=== PATIENT | female | born 1950 | race Caucasian/White ===

== ENCOUNTER 2018-07-27 20:05 | Inpatient (IN) | payer MEDICARE, OTHER ==
[2018-07-27 21:21] LABS: % BASOPHILS 0.6 % (0.0-2.0); % EOSINOPHILS 0.6 % (0.0-5.0); % LYMPHOCYTES 25.1 % (20.0-50.0); % MONOCYTES 5.6 % (2.0-10.0); % NEUTROPHILS 68.1 % (40.0-80.0); HEMATOCRIT 41.7 % (41.0-60); HEMOGLOBIN 13.8 gm/dL (12-16); LYMPHOCYTE ABSOLUTE 1.6 Th/cmm (1.5-3.0); MEAN CELL VOLUME 95.4 fl (81-100); MEAN CORPUSCULAR HEMOGLOBIN 31.6 pg (27.0-31.0); MEAN CORPUSCULAR HGB CONC 33.2 pg (28.0-36.0); MEAN PLATELET VOLUME 7.5 fl; MONOCYTE ABSOLUTE 0.3 Th/cmm (0.3-1.0); NEUTROPHILE ABSOLUTE 4.3 Th/cmm (1.8-8.0); PLATELET COUNT 291 Th/cmm (150-400); RED BLOOD COUNT 4.37 Mil/cmm (3.80-5.20); RED CELL DISTRIBUTION WIDTH 12.3 % (11.5-20.0); WHITE BLOOD COUNT 6.2 Th/cmm (4.8-10.8)
[2018-07-27 21:34] LABS: ALB/GLOB RATIO 1.4 (1.0-1.8); ALBUMIN 4.1 gm/dL (3.7-5.3); ALKALINE PHOSPHATASE 118 U/L (34-104); ANION GAP 14.8 (7.0-16.0); BILIRUBIN,TOTAL 0.3 mg/dL (0.3-1.0); BUN - UREA NITROGEN 16 mg/dL (7-25); CALCIUM SERUM 9.6 mg/dL (8.6-10.3); CARBON DIOXIDE 27.2 mEq/L (21.0-31.0); CHLORIDE 98 mEq/L (98-107); CREATININE - SERUM 0.6 mg/dL (0.6-1.2); GFR AFRICAN-AMERICAN > 60.0 ml/min (>90); GFR NON AFRICAN-AMERICAN > 60.0 ml/min; GLUCOSE 103 mg/dL (70-105); SGOT 26 U/L (13-39); SGPT/ALT 32 U/L (7-52); SODIUM SERUM 136 mEq/L (136-145)
--- NOTE | 2018-07-27 21:53 | ED Physician Chart ---
ED Chief Complaint/HPI - Patient Information Date Seen:: 07/27/18 Time Seen:: 21:48 Chief Complaint:: diarhea ingesting hand hospitalist physician History of Present Illness:: 68 yr old female from [place] who ingested hand hospitalist physician all day with diarhea agitation hx of schizophrenia generalized weakness Allergies:: Allergies Allergy/AdvReac Type Severity Reaction Status Date / Time No Known Allergies Allergy Verified 07/27/18 20:13 Vitals:: Vital Signs - 8 hr 07/27/18 20:05 Temp 98.1 F HR 75 RR 18 BP 121/71 O2 Sat % 96 ED Review of Systems - Review of Systems General/Constitutional: No fever, No chills, No weight loss, No weakness, No diaphoresis, No edema, No loss of appetite Skin: No skin lesions, No rash, No bruising Head: No headache, No light-headedness Eyes: No loss of vision, No pain, No diplopia ENT: No earache, No nasal drainage, No sore throat, No tinnitus Neck: No neck pain, No swelling, No thyromegaly, No stiffness, No mass noted Cardio Vascular: No chest pain, No palpitations, No PND, No orthopnea, No edema Pulmonary: No SOB, No cough, No sputum, No wheezing GI: No nausea, No vomiting, Diarrhea, No pain, No melena, No hematochezia, No constipation, No hematemesis G/U: No dysuria, No frequency, No hematuria Musculoskeletal: No bone or joint pain, No back pain, No muscle pain Endocrine: No polyuria, No polydipsia Psychiatric: No prior psych history, No depression, No anxiety, No suicidal ideation Hematopoietic: No bruising, No lymphadenopathy Allergic/Immuno: No urticaria, No angioedema Neurological: No syncope, No focal symptoms, No weakness, No paresthesia, No headache, No seizure, No dizziness, No confusion, No vertigo ED Past Medical History - Past Medical History Past Medical History: Other (schizophrenia generalized weakness) Family Medical History - Family Member Mother History Unknown: Yes ED Physical Exam - Physical Examination General/Constitutional: Awake, Well-developed, well-nourished, Alert, No distress, GCS 15, Non-toxic appearing, Ambulatory Head: Atraumatic Eyes: Lids, conjuctiva normal, PERRL, EOMI Skin: Nl inspection, No rash, No skin lesions, No ecchymosis, Well hydrated, No lymphadenopathy ENMT: External ears, nose nl, Nasal exam nl, Lips, teeth, gums nl Neck: Nontender, Full ROM w/o pain, No JVD, No nuchal rigidity, No bruit, No mass, No stridor Respiratory: Nl effort/Exclusion, Clear to Auscultation, No Wheeze/Rhonchi/Rales Cardio Vascular: RRR, No murmur, gallop, rubs, NL S1 S2 GI: No tenderness/rebounding/guarding, No organomegaly, No hernia, Normal BS's, Nondistended, No mass/bruits, No McBurney tenderness : No CVA tenderness Extremities: No edema, Normal digits & nails Neuro/Psych: Alert/oriented Misc: Normal back, No paraspinal tenderness ED Labs/Radiology/EKG Results - Lab Results Results: Laboratory Tests 07/27/18 07/27/18 21:16 21:16 WBC 6.2 RBC 4.37 Hgb 13.8 Hct 41.7 MCV 95.4 MCH 31.6 H MCHC Differential 33.2 RDW 12.3 Plt Count 291 MPV 7.5 Neutrophils % 68.1 Lymphocytes % 25.1 Monocytes % 5.6 Eosinophils % 0.6 Basophils % 0.6 Sodium 136 Potassium 4.0 Chloride 98 Carbon Dioxide 27.2 Anion Gap 14.8 BUN 16 Creatinine 0.6 Est GFR ( Amer) > 60.0 Est GFR (Non-Af Amer) > 60.0 BUN/Creatinine Ratio 26.7 Glucose 103 Calcium 9.6 Total Bilirubin 0.3 AST 26 ALT 32 Alkaline Phosphatase 118 H Total Protein 7.0 Albumin 4.1 Globulin 2.9 Albumin/Globulin Ratio 1.4 ED Assessment - Assessment General Assessment: schizophrenia agitation ingestion hand hospitalist physician falls ED Septic Shock - . Is Septic Shock (SBP<90, OR Lactate>4 mmol\L) present?: No - <6hrs of presentation: Vital Signs: Vital Signs - 8 hr 07/27/18 20:05 Temp 98.1 F HR 75 RR 18 BP 121/71 O2 Sat % 96 ED Reassessment (Disposition) - Reassessment Reassessment Condition:: Improved - Diagnosis Diagnosis:: schizophrenia agitation weakness falls glaucoma ingestion hand hospitalist physician diarhea - Patient Disposition Discharge/Transfer:: Acute Care w/in this hosp Admitted to:: Med/Surg Condition at Disposition:: Stable
[2018-07-27 22:44] VITALS: BP 111/51
[2018-07-27] MEDS ORDERED: Magnesium Hydroxide (MOM) 30 mL UDC PO PRN (22:47)
[2018-07-27] MEDS ORDERED: Maalox 30 mL Cup PO PRN (22:47)
[2018-07-27 23:45] LABS: CHOLESTEROL 213 mg/dL (<200); HDL -HIGH DENSITY LIPOPROTEIN 70 mg/dL (23-92); TRIGLYCERIDES 81 mg/dL (<150)
[2018-07-28] MEDS: Multivitamin Tab PO SCH (08:40)
--- NOTE | 2018-07-28 14:50 | History and Physical ---
History of Present Illness - HPI Chief Complaint: psychosis HPI: This is a 68-year old female who is admitted to the geropsych unit due to 1 day history of diarrhea due to ingesting hand sanitizers. Vital Signs: Last Vital Signs Temp 97.2 F 07/27/18 22:36 Pulse 77 07/27/18 22:36 Resp 20 07/27/18 22:36 BP 111/51 07/27/18 22:43 Pulse Ox 96 07/27/18 22:36 Past Medical History Other History: schizophrenia, generalized weakness Family Medical History - Family Member Mother History Unknown: Yes Father History Unknown: Yes Social History Smoke: No Alcohol: None Drugs: None Lives: Senior Living - Medications Home Medications: Home Medication Medication Instructions Recorded Type Acetaminophen [Tylenol] 650 mg PO Q4H PRN 01/23/16 History Multivitamin [Theragran] 1 tab PO DAILY 01/23/16 History Bimatoprost [Lumigan] 1 drop EACH EYE HS 07/27/18 History Divalproex Sodium [Depakote 250 mg PO BID 07/27/18 History Sprinkle] Dorzolamide HCl/Timolol Maleat 1 drop EACH EYE BID 07/27/18 History [Cosopt Eye Drops] OLANZapine [ZyPREXA] 10 mg PO HS 07/27/18 History - Allergies Allergies/Adverse Reactions: Allergies Allergy/AdvReac Type Severity Reaction Status Date / Time No Known Allergies Allergy Verified 07/27/18 20:13 Review of Systems - Review of Systems Constitutional: Report: No Significant Eyes: Report: No Significant Respiratory: Report: No Significant Cardiovascular: Report: No Significant Neurological: Report: No Significant Physical Exam - Physical Exam HEENT: Report: Ears Nose Throat within normal limits Neck: Report: Within normal limits Cardiovascular Systems: Report: +s1/s2 noted, Regular, Rate and Rhythm Respiratory: Report: Breath Sounds are within normal limits, Clear to Auscultation of lung matos Abdomen: Report: Non-tender to palpation Skin: Report: Color of skin is within normal limits, Warm, Dry Neuro/Psych: Report: Mood affect is within normal limits - Lab Results All Lab Results last 24 hours: Laboratory Results - last 24 hr 07/27/18 07/27/18 07/27/18 21:16 21:16 21:16 WBC 6.2 RBC 4.37 Hgb 13.8 Hct 41.7 MCV 95.4 MCH 31.6 H MCHC Differential 33.2 RDW 12.3 Plt Count 291 MPV 7.5 Neutrophils % 68.1 Lymphocytes % 25.1 Monocytes % 5.6 Eosinophils % 0.6 Basophils % 0.6 Sodium 136 Potassium 4.0 Chloride 98 Carbon Dioxide 27.2 Anion Gap 14.8 BUN 16 Creatinine 0.6 Est GFR ( Amer) > 60.0 Est GFR (Non-Af Amer) > 60.0 BUN/Creatinine Ratio 26.7 Glucose 103 Calcium 9.6 Total Bilirubin 0.3 AST 26 ALT 32 Alkaline Phosphatase 118 H Total Protein 7.0 Albumin 4.1 Globulin 2.9 Albumin/Globulin Ratio 1.4 Triglycerides Cholesterol LDL Cholesterol Direct HDL Cholesterol TSH 1.37 07/27/18 21:16 WBC RBC Hgb Hct MCV MCH MCHC Differential RDW Plt Count MPV Neutrophils % Lymphocytes % Monocytes % Eosinophils % Basophils % Sodium Potassium Chloride Carbon Dioxide Anion Gap BUN Creatinine Est GFR ( Amer) Est GFR (Non-Af Amer) BUN/Creatinine Ratio Glucose Calcium Total Bilirubin AST ALT Alkaline Phosphatase Total Protein Albumin Globulin Albumin/Globulin Ratio Triglycerides 81 Cholesterol 213 H LDL Cholesterol Direct 127 HDL Cholesterol 70 TSH - Assessment Assessment: schizophrenia generalized weakness - Plan Plan: fall precautions safety precautions continue home meds
[2018-07-28] MEDS ORDERED: BIMATOPROST EACH EYE SCH (21:00)
--- NOTE | 2018-07-28 21:43 | Psychiatric Evaluation ---
DATE OF SERVICE: 07/28/2018 IDENTIFYING DATA: The patient is a 68-year-old woman, resident of [facility]. Information obtained by directly interviewing the patient as well as reviewing the admission papers. JUSTIFICATION FOR HOSPITALIZATION: The patient is admitted for acute agitation. CHIEF COMPLAINT: "I don't." HISTORY OF PRESENT ILLNESS: This patient is a 68-year-old woman with a long history of psychiatric problems. The patient is reported to have been getting easily agitated and anxious. The patient has also been extremely upset for being in here and I tried to get some information, but the patient is stating that she does not want to talk and has been getting easily upset. PAST PSYCHIATRIC HISTORY: Significant for the patient is being hospitalized in a psychiatric units in the past and the patient has been treated with mood stabilizers as well as an antipsychotic medication. Prior to the hospital, the patient has been on Zyprexa. She has been getting 10 mg by mouth at bedtime and the patient is also getting the Depakote 250 mg twice a day. Even with the medications, the patient has been having difficult time to cope with the stress. Sleep and appetite prior to the hospitalization are reported to be very poor. The patient has paranoid delusions. Please refer to the above. The patient was hospitalized on multiple occasions. MEDICAL HISTORY AND PHYSICAL EXAMINATION: Requested to be done by Dr. Stanton. SUBSTANCE ABUSE HISTORY: None. PHYSICAL OR SEXUAL ABUSE HISTORY: None. SOCIAL HISTORY: The patient is a resident of the [facility]. MENTAL STATUS EXAMINATION: The patient is a 68-year-old woman looking her stated age, irritable, angry. Speech is noted to be coherent, but is irrelevant and the patient is going on a tangent. The patient has paranoid delusions, but denies any command hallucinations. The patient is denying any visual hallucinations. The patient has short-term as well as long-term memory deficits. The patient's behavior is equally danger to self and others because of her acute agitation. DIAGNOSTIC IMPRESSION: AXIS I: Psychotic disorder, not otherwise specified. [place] I B: Rule out schizoaffective disorder. AXIS II: None. AXIS III: As per Dr. Stanton. IMMEDIATE TREATMENT PLAN: The patient is going to be observed on inpatient unit, provided with supportive psychotherapy. The patient is going to be closely monitored and the patient is going to be adjusted on the medications. ESTIMATED LENGTH OF STAY: 5-7 days. DISCHARGE CRITERIA: When she no longer a threat to self or others and be able to cope up with the stress. JOB# [id number]
[2018-07-29] MEDS ORDERED: Multivitamin Tab PO SCH (09:00)
[2018-07-29] MEDS: Multivitamin Tab PO SCH (09:15)
--- NOTE | 2018-07-29 23:41 | Progress Notes ---
DATE: 07/29/2018 PSYCHIATRIC PROGRESS NOTE SUBJECTIVE: Staff was spoken to. The patient is interviewed. Mood is noted to be irritable. Affect is constricted. Insight and judgment noted to be still impaired. Impulse control is noted to be poor. Coping skills are also noted to be very poor. The patient has been very paranoid. The patient is still responding to internal stimuli. The patient is currently on olanzapine and Depakote and has been able to tolerate the medications. No side effects to the medications are noted. ASSESSMENT: The patient is still impulsive and psychotic. PLAN: To continue the patient with the supportive therapy and followup. JOB# [id number]
[2018-07-30] MEDS: Multivitamin Tab PO SCH (08:40)
--- NOTE | 2018-07-30 11:24 | Progress Notes ---
DATE: 07/30/2018 PSYCHIATRIC PROGRESS NOTE PROGRESS ON THE UNIT: Staff was spoken to. The patient is interviewed. Mood is noted to be irritable. Affect is constricted. The patient is isolative and withdrawn. The patient is currently on olanzapine and Depakote. The patient has been able to tolerate the medications. No side effects to the medications are noted. The patient is being closely monitored at this time. ASSESSMENT: The patient is still psychotic. PLAN: To continue the patient with supportive therapy. I encouraged the patient to verbalize the concerns. The patient is not ready to be discharged to a lower level of care. JOB# [id number]
--- NOTE | 2018-07-30 13:21 | Internal Medicine Prog Note ---
Internal Medicine Subjective - Subjective Patient seen and examined:: with staff, chart reviewed, other (late entry fo - 08 04) Patient is:: awake, verbal, interactive Per staff patient has:: no adverse event, no episodes of fall, poor appetite, tolerating meds Internal Medicine Objective - Results Result Diagrams: 07/27/18 21:16 07/27/18 21:16 Recent Labs: Laboratory Last Values WBC 6.2 Th/cmm (4.8-10.8) 07/27/18 21:16 RBC 4.37 Mil/cmm (3.80-5.20) 07/27/18 21:16 Hgb 13.8 gm/dL (12-16) 07/27/18 21:16 Hct 41.7 % (41.0-60) 07/27/18 21:16 MCV 95.4 fl (81-100) 07/27/18 21:16 MCH 31.6 pg (27.0-31.0) H 07/27/18 21:16 MCHC Differential 33.2 pg (28.0-36.0) 07/27/18 21:16 RDW 12.3 % (11.5-20.0) 07/27/18 21:16 Plt Count 291 Th/cmm (150-400) 07/27/18 21:16 MPV 7.5 fl 07/27/18 21:16 Neutrophils % 68.1 % (40.0-80.0) 07/27/18 21:16 Lymphocytes % 25.1 % (20.0-50.0) 07/27/18 21:16 Monocytes % 5.6 % (2.0-10.0) 07/27/18 21:16 Eosinophils % 0.6 % (0.0-5.0) 07/27/18 21:16 Basophils % 0.6 % (0.0-2.0) 07/27/18 21:16 Sodium 136 mEq/L (136-145) 07/27/18 21:16 Potassium 4.0 mEq/L (3.5-5.1) 07/27/18 21:16 Chloride 98 mEq/L (98-107) 07/27/18 21:16 Carbon Dioxide 27.2 mEq/L (21.0-31.0) 07/27/18 21:16 Anion Gap 14.8 (7.0-16.0) 07/27/18 21:16 BUN 16 mg/dL (7-25) 07/27/18 21:16 Creatinine 0.6 mg/dL (0.6-1.2) 07/27/18 21:16 Est GFR ( Amer) > 60.0 ml/min (>90) 07/27/18 21:16 Est GFR (Non-Af Amer) > 60.0 ml/min 07/27/18 21:16 BUN/Creatinine Ratio 26.7 07/27/18 21:16 Glucose 103 mg/dL (70-105) 07/27/18 21:16 Calcium 9.6 mg/dL (8.6-10.3) 07/27/18 21:16 Total Bilirubin 0.3 mg/dL (0.3-1.0) 07/27/18 21:16 AST 26 U/L (13-39) 07/27/18 21:16 ALT 32 U/L (7-52) 07/27/18 21:16 Alkaline Phosphatase 118 U/L (34-104) H 07/27/18 21:16 Total Protein 7.0 gm/dL (6.0-8.3) 07/27/18 21:16 Albumin 4.1 gm/dL (3.7-5.3) 07/27/18 21:16 Globulin 2.9 gm/dL 07/27/18 21:16 Albumin/Globulin Ratio 1.4 (1.0-1.8) 07/27/18 21:16 Triglycerides 81 mg/dL (<150) 07/27/18 21:16 Cholesterol 213 mg/dL (<200) H 07/27/18 21:16 LDL Cholesterol Direct 127 mg/dL (75-193) 07/27/18 21:16 HDL Cholesterol 70 mg/dL (23-92) 07/27/18 21:16 TSH 1.37 uIU/ml (0.34-5.60) 07/27/18 21:16 - Physical Exam Vitals and I&O: Vital Signs Temp 98 F 07/29/18 20:00 Pulse 85 07/29/18 20:00 Resp 18 07/29/18 20:00 BP 110/59 07/29/18 20:00 Pulse Ox 97 07/29/18 20:00 Intake & Output 07/29/18 07/30/18 07/30/18 18:59 06:59 18:59 Intake Total 800 120 Balance 800 120 Intake: Oral 800 120 Other: # Voids 3 3 # Bowel Movements 0 Active Medications: Current Medications Acetaminophen (Tylenol) 650 mg PO Q4H PRN PRN Reason: Pain or Fever >101 Stop: 09/26/18 12:16 Last Admin: 07/29/18 02:14 Dose: 650 mg Al Hydrox/Mg Hydrox/Simethicone (Maalox) 30 ml PO Q4HR PRN PRN Reason: GI DISTRESS Stop: 09/25/18 22:46 Divalproex Sodium (Depakote Sprinkle) 250 mg PO BID ZARA; Protocol Stop: 09/26/18 08:59 Last Admin: 07/30/18 08:40 Dose: 250 mg Dorzolamide/Timolol (Cosopt Ophth Soln) 1 drop EACH EYE BID ZARA Stop: 09/26/18 08:59 Last Admin: 07/30/18 08:40 Dose: 1 drop Latanoprost (Xalatan 0.005% Ophth Soln) 1 drop EACH EYE HS ZARA Stop: 09/26/18 20:59 Last Admin: 07/29/18 20:57 Dose: 1 drop Lorazepam (Ativan) 0.5 mg PO Q4HR PRN; Protocol PRN Reason: Anxiety/Agitation Stop: 08/26/18 22:46 Last Admin: 07/29/18 09:15 Dose: 0.5 mg Magnesium Hydroxide (Milk Of Magnesia) 30 ml PO HS PRN PRN Reason: Constipation Multivitamins/Vitamin C (Theragran) 1 tab PO DAILY ZARA Stop: 09/26/18 08:59 Last Admin: 07/30/18 08:40 Dose: 1 tab Olanzapine (Zyprexa) 5 mg PO HS ZARA; Protocol Stop: 09/27/18 20:59 Last Admin: 07/29/18 20:54 Dose: 5 mg Zolpidem Tartrate (Ambien) 5 mg PO HS PRN PRN Reason: Insomnia Stop: 09/25/18 22:46 General: alert HEENT: NC/AT, PERRLA Neck: Supple, No JVD, No LAD Lungs: CTAB Cardiovascular: RRR, Normal S1, Normal S2, without murmur Abdomen: soft, non-tender, positive bowel sound Extremities: excoriation Neurological: no change - Procedures Procedures: Procedures Procedure Code Date GROUP PSYCHOTHERAPY 46691 01/23/16 GROUP PSYCHOTHERAPY GZHZZZZ 01/23/16 GROUP PSYCHOTHERAPY 26998 12/28/15 GROUP PSYCHOTHERAPY GZHZZZZ 12/28/15 Internal Medicine Assmt/Plan - Assessment Assessment: Assessment: schizophrenia generalized weakness high chol - Plan Plan: fall precautions safety precautions continue home meds - Plan Plan: low fat diet cpm
--- NOTE | 2018-07-30 13:22 | Internal Medicine Prog Note ---
Internal Medicine Subjective - Subjective Patient seen and examined:: with staff, chart reviewed Patient is:: awake, verbal, interactive Per staff patient has:: no adverse event, no episodes of fall, poor appetite, tolerating meds Internal Medicine Objective - Results Result Diagrams: 07/27/18 21:16 07/27/18 21:16 Recent Labs: Laboratory Last Values WBC 6.2 Th/cmm (4.8-10.8) 07/27/18 21:16 RBC 4.37 Mil/cmm (3.80-5.20) 07/27/18 21:16 Hgb 13.8 gm/dL (12-16) 07/27/18 21:16 Hct 41.7 % (41.0-60) 07/27/18 21:16 MCV 95.4 fl (81-100) 07/27/18 21:16 MCH 31.6 pg (27.0-31.0) H 07/27/18 21:16 MCHC Differential 33.2 pg (28.0-36.0) 07/27/18 21:16 RDW 12.3 % (11.5-20.0) 07/27/18 21:16 Plt Count 291 Th/cmm (150-400) 07/27/18 21:16 MPV 7.5 fl 07/27/18 21:16 Neutrophils % 68.1 % (40.0-80.0) 07/27/18 21:16 Lymphocytes % 25.1 % (20.0-50.0) 07/27/18 21:16 Monocytes % 5.6 % (2.0-10.0) 07/27/18 21:16 Eosinophils % 0.6 % (0.0-5.0) 07/27/18 21:16 Basophils % 0.6 % (0.0-2.0) 07/27/18 21:16 Sodium 136 mEq/L (136-145) 07/27/18 21:16 Potassium 4.0 mEq/L (3.5-5.1) 07/27/18 21:16 Chloride 98 mEq/L (98-107) 07/27/18 21:16 Carbon Dioxide 27.2 mEq/L (21.0-31.0) 07/27/18 21:16 Anion Gap 14.8 (7.0-16.0) 12/10/18 21:16 BUN 16 mg/dL (7-25) 07/27/18 21:16 Creatinine 0.6 mg/dL (0.6-1.2) 07/27/18 21:16 Est GFR ( Amer) > 60.0 ml/min (>90) 07/27/18 21:16 Est GFR (Non-Af Amer) > 60.0 ml/min 07/27/18 21:16 BUN/Creatinine Ratio 26.7 07/27/18 21:16 Glucose 103 mg/dL (70-105) 07/27/18 21:16 Calcium 9.6 mg/dL (8.6-10.3) 07/27/18 21:16 Total Bilirubin 0.3 mg/dL (0.3-1.0) 07/27/18 21:16 AST 26 U/L (13-39) 07/27/18 21:16 ALT 32 U/L (7-52) 07/27/18 21:16 Alkaline Phosphatase 118 U/L (34-104) H 07/27/18 21:16 Total Protein 7.0 gm/dL (6.0-8.3) 07/27/18 21:16 Albumin 4.1 gm/dL (3.7-5.3) 07/27/18 21:16 Globulin 2.9 gm/dL 07/27/18 21:16 Albumin/Globulin Ratio 1.4 (1.0-1.8) 07/27/18 21:16 Triglycerides 81 mg/dL (<150) 07/27/18 21:16 Cholesterol 213 mg/dL (<200) H 07/27/18 21:16 LDL Cholesterol Direct 127 mg/dL (75-193) 07/27/18 21:16 HDL Cholesterol 70 mg/dL (23-92) 07/27/18 21:16 TSH 1.37 uIU/ml (0.34-5.60) 07/27/18 21:16 - Physical Exam Vitals and I&O: Vital Signs Temp 98 F 07/29/18 20:00 Pulse 85 07/29/18 20:00 Resp 18 07/29/18 20:00 BP 110/59 07/29/18 20:00 Pulse Ox 97 07/29/18 20:00 Intake & Output 1207/30/18 07/30/18 18:59 06:59 18:59 Intake Total 800 120 Balance 800 120 Intake: Oral 800 120 Other: # Voids 3 3 # Bowel Movements 0 Active Medications: Current Medications Acetaminophen (Tylenol) 650 mg PO Q4H PRN PRN Reason: Pain or Fever >101 Stop: 09/26/18 12:16 Last Admin: 07/29/18 02:14 Dose: 650 mg Al Hydrox/Mg Hydrox/Simethicone (Maalox) 30 ml PO Q4HR PRN PRN Reason: GI DISTRESS Stop: 09/25/18 22:46 Divalproex Sodium (Depakote Sprinkle) 250 mg PO BID ZARA; Protocol Stop: 09/26/18 08:59 Last Admin: 07/30/18 08:40 Dose: 250 mg Dorzolamide/Timolol (Cosopt Ophth Soln) 1 drop EACH EYE BID ZARA Stop: 09/26/18 08:59 Last Admin: 07/30/18 08:40 Dose: 1 drop Latanoprost (Xalatan 0.005% Oph Soln) 1 drop EACH EYE HS ZARA Stop: 09/26/18 20:59 Last Admin: 07/29/18 20:57 Dose: 1 drop Lorazepam (Ativan) 0.5 mg PO Q4HR PRN; Protocol PRN Reason: Anxiety/Agitation Stop: 08/26/18 22:46 Last Admin: 07/29/18 09:15 Dose: 0.5 mg Magnesium Hydroxide (Milk Of Magnesia) 30 ml PO HS PRN PRN Reason: Constipation Multivitamins/Vitamin C (Theragran) 1 tab PO DAILY ZARA Stop: 09/26/18 08:59 Last Admin: 07/30/18 08:40 Dose: 1 tab Olanzapine (Zyprexa) 5 mg PO HS ZARA; Protocol Stop: 09/27/18 20:59 Last Admin: 07/29/18 20:54 Dose: 5 mg Zolpidem Tartrate (Ambien) 5 mg PO HS PRN PRN Reason: Insomnia Stop: 09/25/18 22:46 General: alert HEENT: NC/AT, PERRLA Neck: Supple, No JVD, No LAD Lungs: CTAB Cardiovascular: RRR, Normal S1, Normal S2, without murmur Abdomen: soft, non-tender, positive bowel sound Extremities: excoriation Neurological: no change - Procedures Procedures: Procedures Procedure Code Date GROUP PSYCHOTHERAPY 15897 01/23/16 GROUP PSYCHOTHERAPY GZHZZZZ 01/23/16 GROUP PSYCHOTHERAPY 46146 12/28/15 GROUP PSYCHOTHERAPY GZHZZZZ 12/28/15 Internal Medicine Assmt/Plan - Assessment Assessment: Assessment: schizophrenia generalized weakness high chol - Plan Plan: fall precautions safety precautions continue home meds - Plan Plan: low fat diet cpm ravi rn
--- NOTE | 2018-07-30 20:00 | Consultation ---
DATE OF CONSULTATION: 07/29/2018 REFERRING PHYSICIAN: Ragini Villafana M.D. TYPE OF CONSULTATION: Psychology. HISTORY OF PRESENT ILLNESS: The patient is a 68-year-old female. The patient is a resident of [facility]. The following is by record review and by the patient's self-report. The patient is being admitted due to acute agitation. The staff at the patient's facility report that she became easily agitated and anxious. The patient presents as upset that she has been hospitalized. The patient also presents as selectively mute and declined to answer the majority of the clinical questions. The patient denied any suicidal ideation, plan or intention at the time of this clinical interview. PAST MEDICAL HISTORY: Please see history and physical by Dr. Stanton. PAST PSYCHIATRIC HISTORY: The record indicates the patient has previous psychiatric hospitalizations. Please see medication reconciliation sheet for current psychotropic medications. The patient is under the care of a psychiatrist at her placement. SUBSTANCE ABUSE HISTORY: The patient did not answer these questions. PSYCHOSOCIAL HISTORY: The patient is a resident of a [facility] called [facility]. The patient did not answer questions about occupational or educational history or alevism affiliation. She did not answer questions about family relationships or members involved in her care. The patient did not answer questions about history of physical or sexual abuse or current legal problems. MENTAL STATUS EXAMINATION: The patient appears to be her stated age. The patient's attitude is guarded. Mood is irritable with anger outbursts. Eye contact is poor. Speech seems to be irrelevant. Affect is constricted. Thought process is markedly tangential. Affect is constricted. There are possible paranoid delusions. This needs further evaluation. The patient denied any auditory or visual hallucinations. The patient denied any suicidal ideation, plan or intention. The patient's impulse control is inadequate. Concentration is poor. The patient did not participate in the memory assessment. Sensorium is alert and oriented to self and place. The patient did not participate in the interpretation of proverbs. Insight is impaired. Judgment is impaired. DIAGNOSTIC IMPRESSION: AXIS I: 1. Psychotic disorder, not otherwise specified. 2. Rule out schizoaffective disorder. AXIS II: Deferred. AXIS III: Per Dr. Stanton. TREATMENT PLAN: The patient has been seen by Dr. Villafana for psychiatric evaluation and for the management of the patient's psychotropic medications. We will provide supportive psychotherapy to include reality orientation, differentiation, and integration. We will provide de-escalation as well as motivational enhancement for the patient to become compliant and stay compliant with all aspects of her care and treatment. We will provide coping strategies for phase of life issues. We will encourage the patient to verbalize her concerns. We will also encourage the patient to contract for safety and to be able to demonstrate emotional and self-regulation prior to her discharge. Thank you, Dr. Villafana, for this consult and the opportunity to participate in this patient's care. JOB# [id number] JESENIA
[2018-07-31] MEDS: Multivitamin Tab PO SCH (09:42)
--- NOTE | 2018-07-31 12:50 | Internal Medicine Prog Note ---
Internal Medicine Subjective - Subjective Patient seen and examined:: with staff, chart reviewed Patient is:: awake, verbal, interactive Per staff patient has:: no adverse event, no episodes of fall, poor appetite, tolerating meds Internal Medicine Objective - Results Result Diagrams: 07/27/18 21:16 07/27/18 21:16 Recent Labs: Laboratory Last Values WBC 6.2 Th/cmm (4.8-10.8) 07/27/18 21:16 RBC 4.37 Mil/cmm (3.80-5.20) 07/27/18 21:16 Hgb 13.8 gm/dL (12-16) 07/27/18 21:16 Hct 41.7 % (41.0-60) 07/27/18 21:16 MCV 95.4 fl (81-100) 07/27/18 21:16 MCH 31.6 pg (27.0-31.0) H 07/27/18 21:16 MCHC Differential 33.2 pg (28.0-36.0) 07/27/18 21:16 RDW 12.3 % (11.5-20.0) 07/27/18 21:16 Plt Count 291 Th/cmm (150-400) 07/27/18 21:16 MPV 7.5 fl 07/27/18 21:16 Neutrophils % 68.1 % (40.0-80.0) 07/27/18 21:16 Lymphocytes % 25.1 % (20.0-50.0) 07/27/18 21:16 Monocytes % 5.6 % (2.0-10.0) 07/27/18 21:16 Eosinophils % 0.6 % (0.0-5.0) 07/27/18 21:16 Basophils % 0.6 % (0.0-2.0) 07/27/18 21:16 Sodium 136 mEq/L (136-145) 07/27/18 21:16 Potassium 4.0 mEq/L (3.5-5.1) 07/27/18 21:16 Chloride 98 mEq/L (98-107) 07/27/18 21:16 Carbon Dioxide 27.2 mEq/L (21.0-31.0) 07/27/18 21:16 Anion Gap 14.8 (7.0-16.0) 12/10/18 21:16 BUN 16 mg/dL (7-25) 07/27/18 21:16 Creatinine 0.6 mg/dL (0.6-1.2) 07/27/18 21:16 Est GFR ( Amer) > 60.0 ml/min (>90) 07/27/18 21:16 Est GFR (Non-Af Amer) > 60.0 ml/min 07/27/18 21:16 BUN/Creatinine Ratio 26.7 07/27/18 21:16 Glucose 103 mg/dL (70-105) 07/27/18 21:16 Calcium 9.6 mg/dL (8.6-10.3) 07/27/18 21:16 Total Bilirubin 0.3 mg/dL (0.3-1.0) 07/27/18 21:16 AST 26 U/L (13-39) 07/27/18 21:16 ALT 32 U/L (7-52) 07/27/18 21:16 Alkaline Phosphatase 118 U/L (34-104) H 07/27/18 21:16 Total Protein 7.0 gm/dL (6.0-8.3) 07/27/18 21:16 Albumin 4.1 gm/dL (3.7-5.3) 07/27/18 21:16 Globulin 2.9 gm/dL 07/27/18 21:16 Albumin/Globulin Ratio 1.4 (1.0-1.8) 07/27/18 21:16 Triglycerides 81 mg/dL (<150) 07/27/18 21:16 Cholesterol 213 mg/dL (<200) H 07/27/18 21:16 LDL Cholesterol Direct 127 mg/dL (75-193) 07/27/18 21:16 HDL Cholesterol 70 mg/dL (23-92) 07/27/18 21:16 TSH 1.37 uIU/ml (0.34-5.60) 07/27/18 21:16 - Physical Exam Vitals and I&O: Vital Signs Temp 98.2 F 07/30/18 20:09 Pulse 94 07/30/18 20:09 Resp 18 07/30/18 20:09 BP 127/78 07/30/18 20:09 Pulse Ox 96 07/30/18 20:09 Intake & Output 07/30/1818 07/31/18 18:59 06:59 18:59 Intake Total 1000 360 Output Total 2 Balance 1000 358 Intake: Oral 1000 360 Output: Urine/Stool Mix 2 Other: # Voids 3 1 # Bowel Movements 1 Active Medications: Current Medications Acetaminophen (Tylenol) 650 mg PO Q4H PRN PRN Reason: Pain or Fever >101 Stop: 09/26/18 12:16 Last Admin: 07/29/18 02:14 Dose: 650 mg Al Hydrox/Mg Hydrox/Simethicone (Maalox) 30 ml PO Q4HR PRN PRN Reason: GI DISTRESS Stop: 09/25/18 22:46 Divalproex Sodium (Depakote Sprinkle) 250 mg PO BID ZARA; Protocol Stop: 09/26/18 08:59 Last Admin: 07/31/18 09:42 Dose: 250 mg Dorzolamide/Timolol (Cosopt Ophth Soln) 1 drop EACH EYE BID ZARA Stop: 09/26/18 08:59 Last Admin: 07/31/18 09:42 Dose: 1 drop Latanoprost (Xalatan 0.005% Ophth Soln) 1 drop EACH EYE HS ZARA Stop: 09/26/18 20:59 Last Admin: 07/30/18 22:02 Dose: 1 drop Lorazepam (Ativan) 0.5 mg PO Q4HR PRN; Protocol PRN Reason: Anxiety/Agitation Stop: 08/26/18 22:46 Last Admin: 07/29/18 09:15 Dose: 0.5 mg Magnesium Hydroxide (Milk Of Magnesia) 30 ml PO HS PRN PRN Reason: Constipation Multivitamins/Vitamin C (Theragran) 1 tab PO DAILY ZARA Stop: 09/26/18 08:59 Last Admin: 07/31/18 09:42 Dose: 1 tab Olanzapine (Zyprexa) 5 mg PO HS ZARA; Protocol Stop: 09/27/18 20:59 Last Admin: 07/30/18 22:00 Dose: 5 mg Zolpidem Tartrate (Ambien) 5 mg PO HS PRN PRN Reason: Insomnia Stop: 09/25/18 22:46 Last Admin: 07/30/18 22:00 Dose: 5 mg General: alert HEENT: NC/AT, PERRLA Neck: Supple, No JVD, No LAD Lungs: CTAB Cardiovascular: RRR, Normal S1, Normal S2, without murmur Abdomen: soft, non-tender, positive bowel sound Extremities: excoriation Neurological: no change - Procedures Procedures: Procedures Procedure Code Date GROUP PSYCHOTHERAPY 24692 01/23/16 GROUP PSYCHOTHERAPY GZHZZZZ 01/23/16 GROUP PSYCHOTHERAPY 94349 12/28/15 GROUP PSYCHOTHERAPY GZHZZZZ 12/28/15 Internal Medicine Assmt/Plan - Assessment Assessment: Assessment: schizophrenia generalized weakness high chol - Plan Plan: fall precautions safety precautions continue home meds - Plan Plan: low fat diet cpm ravi rn
--- NOTE | 2018-08-01 00:43 | Progress Notes ---
DATE: 07/31/2018 PSYCHIATRIC PROGRESS NOTE SUBJECTIVE: Staff was spoken to. The patient is interviewed. Mood is noted to be irritable. Affect is constricted. Coping skills are noted to be extremely poor. The patient has been paranoid and has been pacing on the unit. No side effects to the medications are noted. ASSESSMENT: The patient is still psychotic and impulsive. PLAN: To continue the patient with the supportive therapy. I encouraged the patient to verbalize the concerns rather than to act out. JOB# [id number]
[2018-08-01] MEDS: Multivitamin Tab PO SCH (08:25)
--- NOTE | 2018-08-01 12:53 | Progress Notes ---
DATE: 08/01/2018 SUBJECTIVE: Staff was spoken to. The patient is interviewed. Mood is noted to be dysphoric. Coping skills are noted to be very poor. Insight and judgment are noted to be still impaired. Impulse control is poor. The patient has paranoid delusions. The patient has been getting easily frustrated. No side effects to the medications are noted. The patient is currently on Depakote and olanzapine and has been able to tolerate the medication. ASSESSMENT: The patient is still psychotic. PLAN: To continue the patient with the supportive therapy, encouraged the patient to verbalize the concerns rather than to act out. JOB# [id number]
--- NOTE | 2018-08-01 16:08 | Internal Medicine Prog Note ---
Internal Medicine Subjective - Subjective Service Date: 08/01/18 Patient is:: awake, verbal, interactive Per staff patient has:: no adverse event, no episodes of fall, poor appetite, tolerating meds Internal Medicine Objective - Results Result Diagrams: 07/27/18 21:16 07/27/18 21:16 Recent Labs: Laboratory Last Values WBC 6.2 Th/cmm (4.8-10.8) 07/27/18 21:16 RBC 4.37 Mil/cmm (3.80-5.20) 07/27/18 21:16 Hgb 13.8 gm/dL (-16) 07/27/18 21:16 Hct 41.7 % (41.0-60) 07/27/18 21:16 MCV 95.4 fl (81-100) 07/27/18 21:16 MCH 31.6 pg (27.0-31.0) H 07/27/18 21:16 MCHC Differential 33.2 pg (28.0-36.0) 07/27/18 21:16 RDW 12.3 % (11.5-20.0) 07/27/18 21:16 Plt Count 291 Th/cmm (150-400) 07/27/18 21:16 MPV 7.5 fl 07/27/18 21:16 Neutrophils % 68.1 % (40.0-80.0) 07/27/18 21:16 Lymphocytes % 25.1 % (20.0-50.0) 07/27/18 21:16 Monocytes % 5.6 % (2.0-10.0) 07/27/18 21:16 Eosinophils % 0.6 % (0.0-5.0) 07/27/18 21:16 Basophils % 0.6 % (0.0-2.0) 07/27/18 21:16 Sodium 136 mEq/L (136-145) 07/27/18 21:16 Potassium 4.0 mEq/L (3.5-5.1) 07/27/18 21:16 Chloride 98 mEq/L (98-107) 07/27/18 21:16 Carbon Dioxide 27.2 mEq/L (21.0-31.0) 07/27/18 21:16 Anion Gap 14.8 (7.0-16.0) 07/27/18 21:16 BUN 16 mg/dL (7-25) 07/27/18 21:16 Creatinine 0.6 mg/dL (0.6-1.2) 07/27/18 21:16 Est GFR ( Amer) > 60.0 ml/min (>90) 07/27/18 21:16 Est GFR (Non-Af Amer) > 60.0 ml/min 07/27/18 21:16 BUN/Creatinine Ratio 26.7 07/27/18 21:16 Glucose 103 mg/dL (70-105) 07/27/18 21:16 Calcium 9.6 mg/dL (8.6-10.3) 07/27/18 21:16 Total Bilirubin 0.3 mg/dL (0.3-1.0) 07/27/18 21:16 AST 26 U/L (13-39) 07/27/18 21:16 ALT 32 U/L (7-52) 07/27/18 21:16 Alkaline Phosphatase 118 U/L (34-104) H 07/27/18 21:16 Total Protein 7.0 gm/dL (6.0-8.3) 07/27/18 21:16 Albumin 4.1 gm/dL (3.7-5.3) 07/27/18 21:16 Globulin 2.9 gm/dL 07/27/18 21:16 Albumin/Globulin Ratio 1.4 (1.0-1.8) 07/27/18 21:16 Triglycerides 81 mg/dL (<150) 07/27/18 21:16 Cholesterol 213 mg/dL (<200) H 07/27/18 21:16 LDL Cholesterol Direct 127 mg/dL (75-193) 07/27/18 21:16 HDL Cholesterol 70 mg/dL (23-92) 07/27/18 21:16 TSH 1.37 uIU/ml (0.34-5.60) 07/27/18 21:16 - Physical Exam Vitals and I&O: Vital Signs Temp 97.7 F 08/01/18 14:00 Pulse 80 08/01/18 14:00 Resp 20 08/01/18 14:00 BP 107/66 08/01/18 14:00 Pulse Ox 96 08/01/18 14:00 Intake & Output 12/08/01/18 08/01/18 18:59 06:59 18:59 Intake Total 1450 240 Output Total 1 Balance 1450 239 Intake: Oral 1450 240 Output: Urine/Stool Mix 1 Other: # Voids 3 3 # Bowel Movements 1 0 Active Medications: Current Medications Acetaminophen (Tylenol) 650 mg PO Q4H PRN PRN Reason: Pain or Fever >101 Stop: 09/26/18 12:16 Last Admin: 07/29/18 02:14 Dose: 650 mg Al Hydrox/Mg Hydrox/Simethicone (Maalox) 30 ml PO Q4HR PRN PRN Reason: GI DISTRESS Stop: 09/25/18 22:46 Divalproex Sodium (Depakote Sprinkle) 250 mg PO BID ZARA; Protocol Stop: 09/26/18 08:59 Last Admin: 08/01/18 08:25 Dose: 250 mg Dorzolamide/Timolol (Cosopt Ophth Soln) 1 drop EACH EYE BID ZARA Stop: 09/26/18 08:59 Last Admin: 08/01/18 08:31 Dose: 1 drop Latanoprost (Xalatan 0.005% Ophth Soln) 1 drop EACH EYE HS ZARA Stop: 09/26/18 20:59 Last Admin: 07/31/18 20:46 Dose: 1 drop Lorazepam (Ativan) 0.5 mg PO Q4HR PRN; Protocol PRN Reason: Anxiety/Agitation Stop: 08/26/18 22:46 Last Admin: 07/29/18 09:15 Dose: 0.5 mg Magnesium Hydroxide (Milk Of Magnesia) 30 ml PO HS PRN PRN Reason: Constipation Multivitamins/Vitamin C (Theragran) 1 tab PO DAILY ZARA Stop: 09/26/18 08:59 Last Admin: 08/01/18 08:25 Dose: 1 tab Olanzapine (Zyprexa) 5 mg PO HS ZARA; Protocol Stop: 09/27/18 20:59 Last Admin: 07/31/18 20:46 Dose: 5 mg Zolpidem Tartrate (Ambien) 5 mg PO HS PRN PRN Reason: Insomnia Stop: 09/25/18 22:46 Last Admin: 07/30/18 22:00 Dose: 5 mg General: alert HEENT: NC/AT, PERRLA Neck: Supple, No JVD, No LAD Lungs: CTAB Cardiovascular: RRR, Normal S1, Normal S2, without murmur Abdomen: soft, non-tender, positive bowel sound Extremities: excoriation Neurological: no change - Procedures Procedures: Procedures Procedure Code Date GROUP PSYCHOTHERAPY 91086 01/23/16 GROUP PSYCHOTHERAPY GZHZZZZ 01/23/16 GROUP PSYCHOTHERAPY 35992 12/28/15 GROUP PSYCHOTHERAPY GZHZZZZ 12/28/15 Internal Medicine Assmt/Plan - Assessment Assessment: schizophrenia generalized weakness - Plan Plan: fall precautions safety precautions continue home meds Nutritional Asmnt/Malnutr-PDOC - Dietary Evaluation Malnutrition Findings (Please click <Entered> for more info): Nutritional Asmnt/Malnutrition Start: 07/31/18 12: 52 Text: Status: Active Freq: Protocol: Document 07/31/18 12:52 SUMMERAYDEN (Rec: 07/31/18 13:08 BRIE [email or web address]) Nutritional Asmnt/Malnutrition Patient General Information Nutritional Screening Moderate Risk Diagnosis psychosis Pertinent Medical Hx/Surgical Hx schizophrenia, generalized weakness Subjective Information Pt eating lunch in rec room during visit. Pt states her appetite is good and wants extra tea during meals. Per EMR, PO intake improved to 100 %. Current Diet Order/ Nutrition Support mech soft ground, IMTIAZ Pertinent Medications theragran, zyprexa Pertinent Labs 07/27: cholesterol 213 Nutritional Hx/Data Height 5 ft 3 in Height (Calculated Centimeters) 160.0 Current Weight (lbs) 129 lb Weight (Calculated Kilograms) 58.5 Weight (Calculated Grams) 28367.4 [place] Body Weight 124 lb Body Mass Index (BMI) 22.8 Weight Status Approriate GI Symptoms GI Symptoms None Last BM 07/30 Difficult in: None Food Allergies No Skin Integrity/Comment: intact, area of concern, keenan 19 Current %PO Good (75-100%) Estimated Nutritional Goals BEE in Kcals: Using Current wt Calories/Kcals/Kg 25-30 Kcals Calculated 6531-5473 Protein: Using Current wt Protein g/k.0 Protein Calculated 59 g Fluid: ml 2689-3443 (1 ml/kcal) Nutritional Problem No current Nutrition Prob Problem no nutrition dx at this time Malnutrition Alert Is there a minimum of two criteria No selected? Query Text:Check all the applicable criteria. A minimum of two criteria are recommended for diagnosis of either severe or non-severe malnutrition. Malnutrition Related to Morbid Obesity Malnutrition related to morbid obesity No Intervention/Recommendation Comments 1. Continue with [facility] soft ground, IMTIAZ diet as ordered; diet profile updated 2. Monitor PO intake, wt, labs and skin integrity 3. F/U as low risk in 7 days, 08/07 Expected Outcomes/Goals Expected Outcomes/Goals 1. PO intake to meet at least 75% of all meals 2. Wt stability, skin to remain intact, labs to approach WNL. Reviewed by Kari Little RD
[2018-08-02] MEDS: Multivitamin Tab PO SCH (09:34)
--- NOTE | 2018-08-02 15:52 | Internal Medicine Prog Note ---
Internal Medicine Subjective - Subjective Service Date: 08/02/18 Patient is:: awake, verbal, interactive Per staff patient has:: no adverse event, no episodes of fall, poor appetite, tolerating meds Internal Medicine Objective - Results Result Diagrams: 07/27/18 21:16 07/27/18 21:16 Recent Labs: Laboratory Last Values WBC 6.2 Th/cmm (4.8-10.8) 07/27/18 21:16 RBC 4.37 Mil/cmm (3.80-5.20) 07/27/18 21:16 Hgb 13.8 gm/dL (-16) 07/27/18 21:16 Hct 41.7 % (41.0-60) 07/27/18 21:16 MCV 95.4 fl (81-100) 07/27/18 21:16 MCH 31.6 pg (27.0-31.0) H 07/27/18 21:16 MCHC Differential 33.2 pg (28.0-36.0) 07/27/18 21:16 RDW 12.3 % (11.5-20.0) 07/27/18 21:16 Plt Count 291 Th/cmm (150-400) 07/27/18 21:16 MPV 7.5 fl 07/27/18 21:16 Neutrophils % 68.1 % (40.0-80.0) 07/27/18 21:16 Lymphocytes % 25.1 % (20.0-50.0) 07/27/18 21:16 Monocytes % 5.6 % (2.0-10.0) 07/27/18 21:16 Eosinophils % 0.6 % (0.0-5.0) 07/27/18 21:16 Basophils % 0.6 % (0.0-2.0) 07/27/18 21:16 Sodium 136 mEq/L (136-145) 07/27/18 21:16 Potassium 4.0 mEq/L (3.5-5.1) 07/27/18 21:16 Chloride 98 mEq/L (98-107) 07/27/18 21:16 Carbon Dioxide 27.2 mEq/L (21.0-31.0) 07/27/18 21:16 Anion Gap 14.8 (7.0-16.0) 07/27/18 21:16 BUN 16 mg/dL (7-25) 07/27/18 21:16 Creatinine 0.6 mg/dL (0.6-1.2) 07/27/18 21:16 Est GFR ( Amer) > 60.0 ml/min (>90) 07/27/18 21:16 Est GFR (Non-Af Amer) > 60.0 ml/min 07/27/18 21:16 BUN/Creatinine Ratio 26.7 07/27/18 21:16 Glucose 103 mg/dL (70-105) 07/27/18 21:16 Calcium 9.6 mg/dL (8.6-10.3) 07/27/18 21:16 Total Bilirubin 0.3 mg/dL (0.3-1.0) 07/27/18 21:16 AST 26 U/L (13-39) 07/27/18 21:16 ALT 32 U/L (7-52) 07/27/18 21:16 Alkaline Phosphatase 118 U/L (34-104) H 07/27/18 21:16 Total Protein 7.0 gm/dL (6.0-8.3) 07/27/18 21:16 Albumin 4.1 gm/dL (3.7-5.3) 07/27/18 21:16 Globulin 2.9 gm/dL 07/27/18 21:16 Albumin/Globulin Ratio 1.4 (1.0-1.8) 07/27/18 21:16 Triglycerides 81 mg/dL (<150) 07/27/18 21:16 Cholesterol 213 mg/dL (<200) H 07/27/18 21:16 LDL Cholesterol Direct 127 mg/dL (75-193) 07/27/18 21:16 HDL Cholesterol 70 mg/dL (23-92) 07/27/18 21:16 TSH 1.37 uIU/ml (0.34-5.60) 07/27/18 21:16 - Physical Exam Vitals and I&O: Vital Signs Temp 97.5 F 08/02/18 15:31 Pulse 86 08/02/18 15:31 Resp 19 08/02/18 15:31 BP 115/72 08/02/18 15:31 Pulse Ox 96 08/02/18 15:31 Intake & Output 08/01/18 08/02/1816/18 18:59 06:59 18:59 Intake Total 700 470 Balance 700 470 Intake: Oral 700 470 Other: # Voids 3 3 # Bowel Movements 0 0 Active Medications: Current Medications Acetaminophen (Tylenol) 650 mg PO Q4H PRN PRN Reason: Pain or Fever >101 Stop: 09/26/18 12:16 Last Admin: 08/02/18 13:16 Dose: 650 mg Al Hydrox/Mg Hydrox/Simethicone (Maalox) 30 ml PO Q4HR PRN PRN Reason: GI DISTRESS Stop: 09/25/18 22:46 Divalproex Sodium (Depakote Sprinkle) 250 mg PO BID ZARA; Protocol Stop: 09/26/18 08:59 Last Admin: 08/02/18 09:34 Dose: 250 mg Dorzolamide/Timolol (Cosopt Ophth Soln) 1 drop EACH EYE BID ZARA Stop: 09/26/18 08:59 Last Admin: 08/02/18 09:34 Dose: 1 drop Latanoprost (Xalatan 0.005% Oph Soln) 1 drop EACH EYE HS ZARA Stop: 09/26/18 20:59 Last Admin: 08/01/18 20:54 Dose: 1 drop Lorazepam (Ativan) 0.5 mg PO Q4HR PRN; Protocol PRN Reason: Anxiety/Agitation Stop: 08/26/18 22:46 Last Admin: 07/29/18 09:15 Dose: 0.5 mg Magnesium Hydroxide (Milk Of Magnesia) 30 ml PO HS PRN PRN Reason: Constipation Multivitamins/Vitamin C (Theragran) 1 tab PO DAILY ZARA Stop: 09/26/18 08:59 Last Admin: 08/02/18 09:34 Dose: 1 tab Olanzapine (Zyprexa) 5 mg PO HS ZARA; Protocol Stop: 09/27/18 20:59 Last Admin: 08/01/18 20:54 Dose: 5 mg Zolpidem Tartrate (Ambien) 5 mg PO HS PRN PRN Reason: Insomnia Stop: 09/25/18 22:46 Last Admin: 07/30/18 22:00 Dose: 5 mg General: alert HEENT: NC/AT, PERRLA Neck: Supple, No JVD, No LAD Lungs: CTAB Cardiovascular: RRR, Normal S1, Normal S2, without murmur Abdomen: soft, non-tender, positive bowel sound Extremities: excoriation Neurological: no change - Procedures Procedures: Procedures Procedure Code Date GROUP PSYCHOTHERAPY 41542 01/23/16 GROUP PSYCHOTHERAPY GZHZZZZ 01/23/16 GROUP PSYCHOTHERAPY 42586 12/28/15 GROUP PSYCHOTHERAPY GZHZZZZ 12/28/15 Internal Medicine Assmt/Plan - Assessment Assessment: schizophrenia generalized weakness - Plan Plan: fall precautions safety precautions continue home meds Nutritional Asmnt/Malnutr-PDOC - Dietary Evaluation Malnutrition Findings (Please click <Entered> for more info): Nutritional Asmnt/Malnutrition Start: 07/31/18 12: 52 Text: Status: Active Freq: Protocol: Document 07/31/18 12:52 SUMMERAYDEN (Rec: 07/31/18 13:08 BRIE [email or web address]) Nutritional Asmnt/Malnutrition Patient General Information Nutritional Screening Moderate Risk Diagnosis psychosis Pertinent Medical Hx/Surgical Hx schizophrenia, generalized weakness Subjective Information Pt eating lunch in rec room during visit. Pt states her appetite is good and wants extra tea during meals. Per EMR, PO intake improved to 100 %. Current Diet Order/ Nutrition Support mech soft ground, IMTIAZ Pertinent Medications theragran, zyprexa Pertinent Labs 07/27: cholesterol 213 Nutritional Hx/Data Height 5 ft 3 in Height (Calculated Centimeters) 160.0 Current Weight (lbs) 129 lb Weight (Calculated Kilograms) 58.5 Weight (Calculated Grams) [address]5910.4 [place] Body Weight 124 lb Body Mass Index (BMI) 22.8 Weight Status Approriate GI Symptoms GI Symptoms None Last BM 07/30 Difficult in: None Food Allergies No Skin Integrity/Comment: intact, area of concern, keenan 19 Current %PO Good (75-100%) Estimated Nutritional Goals BEE in Kcals: Using Current wt Calories/Kcals/Kg 25-30 Kcals Calculated 9484-8922 Protein: Using Current wt Protein g/k.0 Protein Calculated 59 g Fluid: ml 8866-3566 (1 ml/kcal) Nutritional Problem No current Nutrition Prob Problem no nutrition dx at this time Malnutrition Alert Is there a minimum of two criteria No selected? Query Text:Check all the applicable criteria. A minimum of two criteria are recommended for diagnosis of either severe or non-severe malnutrition. Malnutrition Related to Morbid Obesity Malnutrition related to morbid obesity No Intervention/Recommendation Comments 1. [facility], IMTIAZ diet as ordered; diet profile updated 2. Monitor PO intake, wt, labs and skin integrity 3. F/U as low risk in 7 days, 08/07 Expected Outcomes/Goals Expected Outcomes/Goals 1. PO intake to meet at least 75% of all meals 2. Wt stability, skin to remain intact, labs to approach WNL. Reviewed by Kari Little RD
--- NOTE | 2018-08-02 20:41 | Progress Notes ---
DATE: 08/02/2018 PSYCHIATRIC PROGRESS NOTE SUBJECTIVE: Staff was spoken to. The patient is interviewed. Mood is noted to be irritable. Affect is constricted. The patient is still confused. The patient has been coping very poorly. The patient is currently paranoid, but denies any command hallucinations. Insight and judgment at this time are noted to be very much impaired. Impulse control seems to be limited. No side effects to the medications are noted. The patient is currently on olanzapine 5 mg at bedtime. PLAN: To continue the patient with the current medications and follow up with the supportive therapy. JOB# [id number]
--- NOTE | 2018-08-03 14:00 | Internal Medicine Prog Note ---
Internal Medicine Subjective - Subjective Service Date: 08/03/18 Patient is:: awake, verbal, interactive Per staff patient has:: no adverse event, no episodes of fall, poor appetite, tolerating meds Internal Medicine Objective - Results Result Diagrams: 07/27/18 21:16 07/27/18 21:16 Recent Labs: Laboratory Last Values WBC 6.2 Th/cmm (4.8-10.8) 07/27/18 21:16 RBC 4.37 Mil/cmm (3.80-5.20) 07/27/18 21:16 Hgb 13.8 gm/dL (-16) 07/27/18 21:16 Hct 41.7 % (41.0-60) 07/27/18 21:16 MCV 95.4 fl (81-100) 07/27/18 21:16 MCH 31.6 pg (27.0-31.0) H 07/27/18 21:16 MCHC Differential 33.2 pg (28.0-36.0) 07/27/18 21:16 RDW 12.3 % (11.5-20.0) 07/27/18 21:16 Plt Count 291 Th/cmm (150-400) 07/27/18 21:16 MPV 7.5 fl 07/27/18 21:16 Neutrophils % 68.1 % (40.0-80.0) 07/27/18 21:16 Lymphocytes % 25.1 % (20.0-50.0) 07/27/18 21:16 Monocytes % 5.6 % (2.0-10.0) 07/27/18 21:16 Eosinophils % 0.6 % (0.0-5.0) 07/27/18 21:16 Basophils % 0.6 % (0.0-2.0) 07/27/18 21:16 Sodium 136 mEq/L (136-145) 07/27/18 21:16 Potassium 4.0 mEq/L (3.5-5.1) 07/27/18 21:16 Chloride 98 mEq/L (98-107) 07/27/18 21:16 Carbon Dioxide 27.2 mEq/L (21.0-31.0) 07/27/18 21:16 Anion Gap 14.8 (7.0-16.0) 07/27/18 21:16 BUN 16 mg/dL (7-25) 07/27/18 21:16 Creatinine 0.6 mg/dL (0.6-1.2) 07/27/18 21:16 Est GFR ( Amer) > 60.0 ml/min (>90) 07/27/18 21:16 Est GFR (Non-Af Amer) > 60.0 ml/min 07/27/18 21:16 BUN/Creatinine Ratio 26.7 07/27/18 21:16 Glucose 103 mg/dL (70-105) 07/27/18 21:16 POC Glucose 117 MG/DL (70 - 105) H 08/02/18 21:04 Calcium 9.6 mg/dL (8.6-10.3) 07/27/18 21:16 Total Bilirubin 0.3 mg/dL (0.3-1.0) 07/27/18 21:16 AST 26 U/L (13-39) 07/27/18 21:16 ALT 32 U/L (7-52) 07/27/18 21:16 Alkaline Phosphatase 118 U/L (34-104) H 07/27/18 21:16 Total Protein 7.0 gm/dL (6.0-8.3) 07/27/18 21:16 Albumin 4.1 gm/dL (3.7-5.3) 07/27/18 21:16 Globulin 2.9 gm/dL 07/27/18 21:16 Albumin/Globulin Ratio 1.4 (1.0-1.8) 07/27/18 21:16 Triglycerides 81 mg/dL (<150) 07/27/18 21:16 Cholesterol 213 mg/dL (<200) H 07/27/18 21:16 LDL Cholesterol Direct 127 mg/dL (75-193) 07/27/18 21:16 HDL Cholesterol 70 mg/dL (23-92) 07/27/18 21:16 TSH 1.37 uIU/ml (0.34-5.60) 07/27/18 21:16 - Physical Exam Vitals and I&O: Vital Signs Temp 98.4 F 08/03/18 06:10 Pulse 80 08/03/18 06:10 Resp 19 08/03/18 06:10 BP 116/62 12/17/18 06:10 Pulse Ox 94 08/03/18 06:10 Intake & Output 08/02/1818 08/03/18 18:59 06:59 18:59 Intake Total 250 Balance 250 Intake: Oral 250 Other: # Voids 3 # Bowel Movements 0 Active Medications: Current Medications Acetaminophen (Tylenol) 650 mg PO Q4H PRN PRN Reason: Pain or Fever >101 Stop: 09/26/18 12:16 Last Admin: 08/02/18 20:51 Dose: 650 mg Al Hydrox/Mg Hydrox/Simethicone (Maalox) 30 ml PO Q4HR PRN PRN Reason: GI DISTRESS Stop: 09/25/18 22:46 Divalproex Sodium (Depakote Sprinkle) 250 mg PO BID ZARA; Protocol Stop: 09/26/18 08:59 Last Admin: 08/02/18 16:44 Dose: 250 mg Dorzolamide/Timolol (Cosopt Ophth Soln) 1 drop EACH EYE BID ZARA Stop: 09/26/18 08:59 Last Admin: 08/02/18 16:45 Dose: Not Given Latanoprost (Xalatan 0.005% Ophth Soln) 1 drop EACH EYE HS ZARA Stop: 09/26/18 20:59 Last Admin: 08/02/18 20:51 Dose: 1 drop Lorazepam (Ativan) 0.5 mg PO Q4HR PRN; Protocol PRN Reason: Anxiety/Agitation Stop: 08/26/18 22:46 Last Admin: 08/02/18 20:52 Dose: 0.5 mg Magnesium Hydroxide (Milk Of Magnesia) 30 ml PO HS PRN PRN Reason: Constipation Multivitamins/Vitamin C (Theragran) 1 tab PO DAILY ZARA Stop: 09/26/18 08:59 Last Admin: 08/02/18 09:34 Dose: 1 tab Olanzapine (Zyprexa) 5 mg PO HS ZARA; Protocol Stop: 09/27/18 20:59 Last Admin: 08/02/18 20:52 Dose: 5 mg Zolpidem Tartrate (Ambien) 5 mg PO HS PRN PRN Reason: Insomnia Stop: 09/25/18 22:46 Last Admin: 07/30/18 22:00 Dose: 5 mg General: alert HEENT: NC/AT, PERRLA Neck: Supple, No JVD, No LAD Lungs: CTAB Cardiovascular: RRR, Normal S1, Normal S2, without murmur Abdomen: soft, non-tender, positive bowel sound Extremities: excoriation Neurological: no change - Procedures Procedures: Procedures Procedure Code Date GROUP PSYCHOTHERAPY 09612 01/23/16 GROUP PSYCHOTHERAPY GZHZZZZ 01/23/16 GROUP PSYCHOTHERAPY 36252 12/28/15 GROUP PSYCHOTHERAPY GZHZZZZ 12/28/15 Internal Medicine Assmt/Plan - Assessment Assessment: schizophrenia generalized weakness - Plan Plan: fall precautions safety precautions continue home meds Nutritional Asmnt/Malnutr-PDOC - Dietary Evaluation Malnutrition Findings (Please click <Entered> for more info): Nutritional Asmnt/Malnutrition Start: 07/31/18 12: 52 Text: Status: Active Freq: Protocol: Document 07/31/18 12:52 SUMMERAYDEN (Rec: 07/31/18 13:08 BRIE [email or web address]) Nutritional Asmnt/Malnutrition Patient General Information Nutritional Screening Moderate Risk Diagnosis psychosis Pertinent Medical Hx/Surgical Hx schizophrenia, generalized weakness Subjective Information Pt eating lunch in rec room during visit. Pt states her appetite is good and wants extra tea during meals. Per EMR, PO intake improved to 100 %. Current Diet Order/ Nutrition Support mech soft ground, IMTIAZ Pertinent Medications theragran, zyprexa Pertinent Labs 07/27: cholesterol 213 Nutritional Hx/Data Height 5 ft 3 in Height (Calculated Centimeters) 160.0 Current Weight (lbs) 129 lb Weight (Calculated Kilograms) 58.5 Weight (Calculated Grams) 05569.4 [place] Body Weight 124 lb Body Mass Index (BMI) 22.8 Weight Status Approriate GI Symptoms GI Symptoms None Last BM 07/30 Difficult in: None Food Allergies No Skin Integrity/Comment: intact, area of concern, keenan 19 Current %PO Good (75-100%) Estimated Nutritional Goals BEE in Kcals: Using Current wt Calories/Kcals/Kg 25-30 Kcals Calculated 3756-5223 Protein: Using Current wt Protein g/k.0 Protein Calculated 59 g Fluid: ml 0206-4367 (1 ml/kcal) Nutritional Problem No current Nutrition Prob Problem no nutrition dx at this time Malnutrition Alert Is there a minimum of two criteria No selected? Query Text:Check all the applicable criteria. A minimum of two criteria are recommended for diagnosis of either severe or non-severe malnutrition. Malnutrition Related to Morbid Obesity Malnutrition related to morbid obesity No Intervention/Recommendation Comments 1. Continue with [facility] soft ground, IMTIAZ diet as ordered; diet profile updated 2. Monitor PO intake, wt, labs and skin integrity 3. F/U as low risk in 7 days, 08/07 Expected Outcomes/Goals Expected Outcomes/Goals 1. PO intake to meet at least 75% of all meals 2. Wt stability, skin to remain intact, labs to approach WNL. Reviewed by Kari Little RD
[2018-08-03] MEDS: Multivitamin Tab PO SCH (14:14)
--- NOTE | 2018-08-03 21:12 | Discharge Summary ---
DATE OF DISCHARGE: 08/03/2018 PSYCHIATRIC DISCHARGE SUMMARY IDENTIFYING DATA: The patient is a 68-year-old woman, [facility] Information obtained directly interviewing the patient as well as reviewing the admission papers and they are reliable. JUSTIFICATION OF HOSPITALIZATION: The patient is admitted for her acute agitation. CHIEF COMPLAINT: "I don't know what is happening." HISTORY OF PRESENT ILLNESS: Please refer to 07/28/2018 dictation done by me. Physical examination is requested and done by Dr. Stanton. DIAGNOSIS AT THE TIME OF ADMISSION: AXIS I: Psychotic disorder, not otherwise specified, rule out schizoaffective disorder. AXIS II: None. AXIS III: As per Dr. Stanton. HOSPITAL COURSE AND RESPONSE TO TREATMENT: The patient has been observed on the inpatient unit, provided with supportive psychotherapy. The patient has been closely monitored and has been continued with the divalproex acid, which was given to 50 mg twice a day, olanzapine was given 5 mg at bedtime. With these medication, the patient stated to do fairly well and hence was discharged on 08/03/2018 with recommendation that she is going to be seeking treatment on an outpatient basis. MENTAL STATUS EXAMINATION: At the time of the discharge, the patient noted to be anxious. Affect is appropriate. Not suicidal or homicidal. Insight and judgment are noted to be improving. Impulse control is noted to be fair. No side effects to the medications are noted. The patient has been able to verbalize the concerns rather than to act out at the time of discharge. CONDITION: At the time of discharge noted to be stable. DIAGNOSES AT THE TIME OF DISCHARGE: AXIS I: Schizoaffective disorder. AXIS II: None. AXIS III: As per Dr. Stanton. AFTERCARE PLAN: The patient is discharged to [facility] to be followed up on an outpatient basis. JOB# [id number]
== END 2018-08-03 14:20 | DRG 885 ==
LOC: ER 20:05 → GERO 21:50
PROVIDERS: ADMIT Psychiatry & Neurology Psychiatry; ATTEND Psychiatry & Neurology Psychiatry
DX: F25.9 Schizoaffective disorder, unspecified (principal); F29 Unspecified psychosis not due to a substance or known physiological condition; H40.9 Unspecified glaucoma; E78.00 Pure hypercholesterolemia, unspecified
CPT/HCPCS: 36415-UA; 80053-TC; 80061-TC; 82948-90; 83036-90; 84443-TC; 85025-TC; 93005; G0410; J7051; Z7610

== ENCOUNTER 2019-05-05 17:15 | Inpatient (IN) | payer MEDICARE, OTHER ==
[2019-05-05] MEDS ORDERED: Magnesium Hydroxide (MOM) 30 mL UDC PO PRN (17:28)
[2019-05-05] MEDS ORDERED: Maalox 30 mL Cup PO PRN (17:28)
[2019-05-05 17:55] VITALS: BP 132/61
[2019-05-06] MEDS ORDERED: Multivitamin Tab PO SCH (09:00)
[2019-05-06] MEDS: Timolol 0.25% Ophth Soln 5 mL Bottle EACH EYE SCH ×2 (09:01→17:25)
[2019-05-06] MEDS ORDERED: Maalox 30 mL Cup PO PRN (12:26)
[2019-05-06] MEDS ORDERED: Magnesium Hydroxide (MOM) 30 mL UDC PO PRN (12:26)
--- NOTE | 2019-05-06 15:03 | Consultation ---
DATE OF CONSULTATION: 05/06/2019 REASON FOR CONSULTATION: Medical management and clearance. Admitted to inpatient unit. HISTORY OF PRESENT ILLNESS: This is a 69-year-old female with a history of IBS, GERD, and dementia, glaucoma, admitted from nursing facility under the service of Dr. Gonzalez. The patient is not a best historian. Denies chest pain or shortness of breath. PAST MEDICAL HISTORY: As mentioned in history of present illness. PAST SURGICAL HISTORY: x 3. ALLERGIES: No known drug allergies. MEDICATIONS: Ativan, Zyprexa, Ambien, Tylenol, Maalox, Depakote, ____, multivitamin. FAMILY HISTORY: Noncontributory. SOCIAL HISTORY: The patient is an avid smoker, nondrinker, and no intravenous drug use, apparently with 3 children. REVIEW OF SYSTEMS: GENERAL: Denies increased general symptoms. HEENT: No blurred vision. LUNGS: No diagnosis of COPD. The patient is a chronic smoker. HEART: Denies hypertension or coronary artery disease. ABDOMEN: History of IBS and acid reflux. GENITOURINARY: The patient denies increased frequency or dysuria. NEUROLOGIC: No headache, seizure or syncope. PSYCHIATRIC: Stable. PHYSICAL EXAMINATION: VITAL SIGNS: Blood pressure 126/83, respiratory rate 18, pulse 85, temperature 98.5. GENERAL: Elderly female in a wheelchair. The patient was seen ____. NECK: Supple. No mass. LUNGS: Equal breath sounds, otherwise clear to auscultation. HEART: Regular rate and rhythm without appreciable murmur. ABDOMEN: Soft, nontender. Positive bowel sounds. ____. SKIN: Warm to touch. Positive ecchymosis on the right upper extremity. NEUROLOGIC: Limited upper extremity. LABORATORY DATA: Pending. ASSESSMENT AND PLAN: Irritable bowel syndrome, gastroesophageal reflux disease, dementia, glaucoma, and schizoaffective disorder. We will try to get results of the labs done at [facility]. The patient was medically cleared. Continue on pain medication as well as her ophthalmic eyedrops. We will provide the patient with antacid. We will continue monitoring the patient closely. JOB# [id number]
--- NOTE | 2019-05-07 02:33 | Psychiatric Evaluation ---
DATE OF SERVICE: 05/05/2019 IDENTIFYING DATA: The patient is a 69-year-old woman, resident of [facility]. Information obtained by directly interviewing the patient as well as reviewing the admission papers. JUSTIFICATION FOR HOSPITALIZATION: The patient is admitted on a voluntary basis in view of her acute agitation and aggressive behavior. CHIEF COMPLAINT: "I don't care. They did not give me my medication right away." HISTORY OF PRESENT ILLNESS: This is a second psychiatric hospitalization for this patient who was hospitalized under my care in 07/2018. The patient has been diagnosed to have schizoaffective disorder and is being followed up by Dr. Gonzalez on an outpatient basis. The patient is currently being medicated with Zyprexa and Depakote, but however, the patient has been getting easily angry, upset and getting agitated and has been screaming and trying to strike the staff out and hence the patient has to be referred over here for further stabilization. The patient's sleep is noted to be poor. Appetite is also noted to be very poor. PAST PSYCHIATRIC HISTORY: Please refer to the above. MEDICAL HISTORY: Physical examination is requested to be done by Dr. Stanton. SUBSTANCE ABUSE HISTORY: None. SOCIAL HISTORY: The patient is a resident of the [facility]. MENTAL STATUS EXAMINATION: The patient is a 69-year-old woman looking her stated age, sitting in the wheelchair, superficially cooperative. The patient is noted to be irritable, angry and screaming that she did not get her the right medication she is supposed to be getting it from a registered nurse. The patient is going ____. The patient is very paranoid at this time. No visual hallucinations are noted. The patient is alert and is aware that she is in the hospital for her attention span and concentration are noted to be very poor. Short term memory is noted to be fair. Long-term memory is also noted to be fair at this time. The patient's behavior is a clear danger to others at this time. The patient is not suicidal. The patient is not able to verbalize her concerns, but rather than screams and yells at this time. The patient's behavior is equally danger to self and others. DIAGNOSTIC IMPRESSION: AXIS I: Schizoaffective disorder. IB: Dementia and behavioral changes, secondary trait. AXIS II: None. AXIS III: As per Dr. Stanton. IMMEDIATE TREATMENT PLAN: The patient is going to be observed on inpatient unit, provide with supportive psychotherapy. The patient is going to be closely monitored. We encouraged to verbalize the concerns rather than to act out. Once stabilized, the patient is going to be discharged to [facility] to be followed up at [facility] by Dr. Gonzalez. JOB# [id number]
[2019-05-07] MEDS: Timolol 0.25% Ophth Soln 5 mL Bottle EACH EYE SCH ×2 (09:46→16:36)
[2019-05-07] MEDS: Multivitamin Tab PO SCH (09:46)
--- NOTE | 2019-05-07 12:56 | Internal Medicine Prog Note ---
Internal Medicine Subjective - Subjective Patient seen and examined:: with staff, chart reviewed Patient is:: awake, verbal, interactive Per staff patient has:: no adverse event, no episodes of fall, tolerating meds Internal Medicine Objective - Physical Exam Vitals and I&O: Vital Signs Temp 97.9 F 05/07/19 06:54 Pulse 67 05/07/19 06:54 Resp 18 05/07/19 06:54 BP 99/51 05/07/19 06:54 Pulse Ox 96 05/07/19 06:54 Intake & Output 05/06/19 05/07/19 05/07/19 18:59 06:59 18:59 Intake Total 240 Output Total 1 Balance 239 Intake: Oral 240 Output: Urine/Stool Mix 1 Other: # Voids 1 Stool Characteristics Soft Soft Active Medications: Current Medications Acetaminophen (Tylenol) 650 mg PO Q4HR PRN PRN Reason: Mild Pain / Temp above 100 Stop: 07/04/19 17:27 Acetaminophen (Tylenol) 650 mg PO Q4H PRN PRN Reason: Mild Pain or Fever >101 Stop: 07/05/19 12:25 Al Hydrox/Mg Hydrox/Simethicone (Maalox) 30 ml PO Q4HR PRN PRN Reason: GI DISTRESS Stop: 07/05/19 12:25 Divalproex Sodium (Depakote Sprinkle) 250 mg PO BID ZARA; Protocol Stop: 07/04/19 20:59 Last Admin: 05/07/19 09:46 Dose: Not Given Dorzolamide HCl (Trusopt 2% Ophth Soln) 1 drop EACH EYE BID ZARA Stop: 07/05/19 08:59 Last Admin: 05/07/19 09:46 Dose: Not Given Latanoprost (Xalatan 0.005% Ophth Soln) 1 drop EACH EYE HS ZARA Stop: 07/04/19 20:59 Last Admin: 05/06/19 20:33 Dose: Not Given Lorazepam (Ativan) 0.5 mg PO Q4HR PRN; Protocol PRN Reason: Agitation Stop: 06/04/19 17:27 Magnesium Hydroxide (Milk Of Magnesia) 30 ml PO HS PRN PRN Reason: Constipation Stop: 07/05/19 12:25 Multivitamins/Vitamin C (Theragran) 1 tab PO DAILY ZARA Stop: 07/06/19 08:59 Last Admin: 05/07/19 09:46 Dose: Not Given Olanzapine (Zyprexa) 2.5 mg PO DAILY ZARA; Protocol Stop: 07/05/19 08:59 Last Admin: 05/07/19 09:46 Dose: Not Given Olanzapine (Zyprexa) 5 mg PO HS ZARA; Protocol Stop: 07/04/19 20:59 Last Admin: 05/06/19 20:34 Dose: 5 mg Timolol Maleate (Timoptic 0.25% Ophth Soln) 1 drop EACH EYE BID ZARA Stop: 07/05/19 08:59 Last Admin: 05/07/19 09:46 Dose: Not Given Zolpidem Tartrate (Ambien) 5 mg PO HS PRN PRN Reason: Insomnia Stop: 07/04/19 17:27 Last Admin: 05/05/19 21:36 Dose: 5 mg General: demented HEENT: NC/AT, PERRLA, EOMI Neck: Supple Lungs: CTAB Cardiovascular: RRR, Normal S1, Normal S2, with murmur Abdomen: soft, non-tender, non-distended, positive bowel sound Extremities: excoriation Neurological: no change - Procedures Procedures: Procedures Procedure Code Date GROUP PSYCHOTHERAPY 46057 01/23/16 GROUP PSYCHOTHERAPY GZHZZZZ 01/23/16 GROUP PSYCHOTHERAPY 81863 12/28/15 GROUP PSYCHOTHERAPY GZHZZZZ 12/28/15 Internal Medicine Assmt/Plan - Assessment Assessment: ASSESSMENT AND PLAN: Irritable bowel syndrome, gastroesophageal reflux disease, dementia, glaucoma, and schizoaffective disorder. - Plan Plan: PLAN: We will try to get results of the labs done at [facility]. The patient was medically cleared. Continue on pain medication as well as her ophthalmic eyedrops. We will provide the patient with antacid. We will continue monitoring the patient closely.
--- NOTE | 2019-05-08 02:09 | Progress Notes ---
DATE: 05/07/2019 SUBJECTIVE: Staff was spoken to. The patient is interviewed. Mood is noted to be irritable. Affect is constricted. The patient's insight and judgment are noted to be still impaired. Impulse control is noted to be limited. The patient has been confused and not making sense, but the patient is screaming and yelling. The patient is currently on Zyprexa 2.5 mg in the morning and 5 mg at night time. In view of her psychosis, it is decided to increase the dose on the Zyprexa to 5 mg twice a day and follow the patient with the supportive therapy. JOB# [id number]
[2019-05-08] MEDS: Timolol 0.25% Ophth Soln 5 mL Bottle EACH EYE SCH ×2 (08:12→17:39)
[2019-05-08] MEDS: Multivitamin Tab PO SCH (08:49)
--- NOTE | 2019-05-08 15:27 | Internal Medicine Prog Note ---
Internal Medicine Subjective - Subjective Service Date: 05/08/19 Patient is:: awake, verbal, interactive Per staff patient has:: no adverse event, no episodes of fall, tolerating meds Internal Medicine Objective - Physical Exam Vitals and I&O: Vital Signs Temp 98 F 05/08/19 14:01 Pulse 72 05/08/19 14:01 Resp 18 05/08/19 14:01 BP 106/61 05/08/19 14:01 Pulse Ox 94 05/08/19 14:01 Intake & Output 05/07/19 05/08/19 05/08/19 18:59 06:59 18:59 Intake Total 1000 1200 Balance 1000 1200 Intake: Oral 1000 1200 Other: # Voids 4 2 # Bowel Movements 1 Stool Characteristics Soft Soft Active Medications: Current Medications Acetaminophen (Tylenol) 650 mg PO Q4HR PRN PRN Reason: Mild Pain / Temp above 100 Stop: 07/04/19 17:27 Acetaminophen (Tylenol) 650 mg PO Q4H PRN PRN Reason: Mild Pain or Fever >101 Stop: 07/05/19 12:25 Al Hydrox/Mg Hydrox/Simethicone (Maalox) 30 ml PO Q4HR PRN PRN Reason: GI DISTRESS Stop: 07/05/19 12:25 Divalproex Sodium (Depakote Sprinkle) 250 mg PO BID ZARA; Protocol Stop: 07/04/19 20:59 Last Admin: 05/08/19 08:47 Dose: 250 mg Dorzolamide HCl (Trusopt 2% Ophth Soln) 1 drop EACH EYE BID ZARA Stop: 07/05/19 08:59 Last Admin: 05/08/19 08:12 Dose: Not Given Latanoprost (Xalatan 0.005% Ophth Soln) 1 drop EACH EYE HS ZARA Stop: 07/04/19 20:59 Last Admin: 05/07/19 20:25 Dose: 1 drop Lorazepam (Ativan) 0.5 mg PO Q4HR PRN; Protocol PRN Reason: Agitation Stop: 06/04/19 17:27 Magnesium Hydroxide (Milk Of Magnesia) 30 ml PO HS PRN PRN Reason: Constipation Stop: 07/05/19 12:25 Multivitamins/Vitamin C (Theragran) 1 tab PO DAILY ZARA Stop: 07/06/19 08:59 Last Admin: 05/08/19 08:49 Dose: 1 tab Olanzapine (Zyprexa) 5 mg PO HS ZARA; Protocol Stop: 07/04/19 20:59 Last Admin: 05/07/19 20:22 Dose: 5 mg Olanzapine (Zyprexa) 5 mg PO DAILY ZARA; Protocol Stop: 07/07/19 08:59 Last Admin: 05/08/19 08:48 Dose: 5 mg Timolol Maleate (Timoptic 0.25% Ophth Soln) 1 drop EACH EYE BID ZARA Stop: 07/05/19 08:59 Last Admin: 05/08/19 08:12 Dose: Not Given Zolpidem Tartrate (Ambien) 5 mg PO HS PRN PRN Reason: Insomnia Stop: 07/04/19 17:27 Last Admin: 05/05/19 21:36 Dose: 5 mg General: demented HEENT: NC/AT, PERRLA, EOMI Neck: Supple Lungs: CTAB Cardiovascular: RRR, Normal S1, Normal S2, with murmur Abdomen: soft, non-tender, non-distended, positive bowel sound Extremities: excoriation Neurological: no change - Procedures Procedures: Procedures Procedure Code Date GROUP PSYCHOTHERAPY 43822 01/23/16 GROUP PSYCHOTHERAPY GZHZZZZ 01/23/16 GROUP PSYCHOTHERAPY 12804 12/28/15 GROUP PSYCHOTHERAPY GZHZZZZ 12/28/15 Internal Medicine Assmt/Plan - Assessment Assessment: ASSESSMENT AND PLAN: Irritable bowel syndrome, gastroesophageal reflux disease, dementia, glaucoma, and schizoaffective disorder. . - Plan Plan: PLAN: We will try to get results of the labs done at [facility]. The patient was medically cleared. Continue on pain medication as well as her ophthalmic eyedrops. We will provide the patient with antacid. We will continue monitoring the patient closely Nutritional Asmnt/Malnutr-PDOC - Dietary Evaluation Malnutrition Findings (Please click <Entered> for more info): Nutritional Asmnt/Malnutrition Start: 05/08/19 10: 34 Text: Status: Complete Freq: Protocol: Document 05/08/19 10:34 [email or web address] (Rec: 05/08/19 10:50 [email or web address] CANDELARIA- [email or web address]) Nutritional Asmnt/Malnutrition Patient General Information Nutritional Screening Moderate Risk Diagnosis Psychosis Pertinent Medical Hx/Surgical Hx Schizophrenia, biploar, muscle weakness, dementia, glacoma, irritable bowel syndrome. Subjective Information Patient was admitted from SNF for being verbally aggressive, attempting to strike out, cursing at staff. Eating lunch at time of visit; tolerating well. Current Diet Order/ Nutrition Support Mechanical soft, 2gm Sodium Patient / S.O Not Indicated Pertinent Medications maalox, MOM, Theragran Pertinent Labs No labs available Nutritional Hx/Data Height 5 ft 3 in Height (Calculated Centimeters) 160.0 Current Weight (lbs) 129 lb Weight (Calculated Kilograms) 58.5 Weight (Calculated Grams) 67756.4 [place] Body Weight 115 % [place] Body Weight 112 Body Mass Index (BMI) 22.8 Recent Weight Change No Weight Status Approriate GI Symptoms GI Symptoms None Last BM 05/07 x 1 Difficult in: None Food Allergies No Cultural/Ethnic/Yazidi Belief none indicated Usual diet at home unknown Skin Integrity/Comment: Lb 17, intact Current %PO Good (75-100%) Estimated Nutritional Goals BEE in Kcals: Using Current wt Calories/Kcals/Kg 58.6kg CBW 25-30kcal/kg Kcals Calculated ~6053-7033 kcal/day Protein: Using Current wt Protein g/k.8-1gm/kg Protein Calculated ~45-60 gm/day Fluid: ml ~7878-8731 ml/day (1 ml/kcal) Nutritional Problem No current Nutrition Prob Problem No nutrition diagnosis at this time Intervention/Recommendation Comments 1. Continue mechanical soft, 2gm Sodium diet as tolerated by patient. Expected Outcomes/Goals Expected Outcomes/Goals Oral intake >75% of meals, weight stable, labs WNL F/U LR 05/15
--- NOTE | 2019-05-08 23:58 | Progress Notes ---
DATE: 05/08/2019 PSYCHIATRIC PROGRESS NOTE SUBJECTIVE: Staff was spoken to. The patient is interviewed. Chart is reviewed. Mood is noted to be irritable. Affect is constricted. The patient still continues to be irritable and angry and has been testing the limits. The patient has no insight into her illness. Coping skills at this time are noted to be very poor. The patient has no clue that she is in the hospital and is demanding that she should be given the medication by a staff nurse. The patient is alert and oriented to person, but not to time and place. ASSESSMENT: The patient is still psychotic and confused. PLAN: To continue the patient with the Zyprexa and follow the patient with a supportive therapy. The patient is not ready to be discharged to a lower level of care. No side effects to the medications are noted at this time. JOB# [id number]
[2019-05-09] MEDS: Multivitamin Tab PO SCH (08:58)
[2019-05-09] MEDS: Timolol 0.25% Ophth Soln 5 mL Bottle EACH EYE SCH ×2 (08:59→16:56)
--- NOTE | 2019-05-09 15:23 | Internal Medicine Prog Note ---
Internal Medicine Subjective - Subjective Service Date: 05/09/19 Patient is:: awake, verbal, interactive Per staff patient has:: no adverse event, no episodes of fall, tolerating meds Internal Medicine Objective - Physical Exam Vitals and I&O: Vital Signs Temp 96.7 F 05/09/19 14:01 Pulse 88 05/09/19 14:01 Resp 18 05/09/19 14:01 BP 96/51 05/09/19 14:01 Pulse Ox 96 05/09/19 14:01 Intake & Output 05/08/19 05/09/19 05/09/19 18:59 06:59 18:59 Intake Total 1200 180 120 Balance 1200 180 120 Intake: Oral 1200 180 120 Other: # Voids 4 3 # Bowel Movements 1 Stool Characteristics Soft Soft Soft Active Medications: Current Medications Acetaminophen (Tylenol) 650 mg PO Q4HR PRN PRN Reason: Mild Pain / Temp above 100 Stop: 07/04/19 17:27 Acetaminophen (Tylenol) 650 mg PO Q4H PRN PRN Reason: Mild Pain or Fever >101 Stop: 07/05/19 12:25 Al Hydrox/Mg Hydrox/Simethicone (Maalox) 30 ml PO Q4HR PRN PRN Reason: GI DISTRESS Stop: 07/05/19 12:25 Divalproex Sodium (Depakote Sprinkle) 250 mg PO BID ZARA; Protocol Stop: 07/04/19 20:59 Last Admin: 05/09/19 08:58 Dose: 250 mg Dorzolamide HCl (Trusopt 2% Ophth Soln) 1 drop EACH EYE BID ZARA Stop: 07/05/19 08:59 Last Admin: 05/09/19 08:59 Dose: 1 drop Latanoprost (Xalatan 0.005% Ophth Soln) 1 drop EACH EYE HS ZARA Stop: 07/04/19 20:59 Last Admin: 05/08/19 20:41 Dose: 1 drop Lorazepam (Ativan) 0.5 mg PO Q4HR PRN; Protocol PRN Reason: Agitation Stop: 06/04/19 17:27 Magnesium Hydroxide (Milk Of Magnesia) 30 ml PO HS PRN PRN Reason: Constipation Stop: 07/05/19 12:25 Multivitamins/Vitamin C (Theragran) 1 tab PO DAILY ZARA Stop: 07/06/19 08:59 Last Admin: 05/09/19 08:58 Dose: 1 tab Olanzapine (Zyprexa) 5 mg PO HS ZARA; Protocol Stop: 07/04/19 20:59 Last Admin: 05/08/19 20:41 Dose: 5 mg Olanzapine (Zyprexa) 5 mg PO DAILY ZARA; Protocol Stop: 07/07/19 08:59 Last Admin: 05/09/19 08:58 Dose: 5 mg Timolol Maleate (Timoptic 0.25% Ophth Soln) 1 drop EACH EYE BID ZARA Stop: 07/05/19 08:59 Last Admin: 05/09/19 08:59 Dose: 1 drop Zolpidem Tartrate (Ambien) 5 mg PO HS PRN PRN Reason: Insomnia Stop: 07/04/19 17:27 Last Admin: 05/08/19 20:42 Dose: 5 mg General: demented HEENT: NC/AT, PERRLA, EOMI Neck: Supple Lungs: CTAB Cardiovascular: RRR, Normal S1, Normal S2, with murmur Abdomen: soft, non-tender, non-distended, positive bowel sound Extremities: excoriation Neurological: no change - Procedures Procedures: Procedures Procedure Code Date GROUP PSYCHOTHERAPY 43186 01/23/16 GROUP PSYCHOTHERAPY GZHZZZZ 01/23/16 GROUP PSYCHOTHERAPY 11988 12/28/15 GROUP PSYCHOTHERAPY GZHZZZZ 12/28/15 Internal Medicine Assmt/Plan - Assessment Assessment: ASSESSMENT AND PLAN: Irritable bowel syndrome, gastroesophageal reflux disease, dementia, glaucoma, and schizoaffective disorder. . - Plan Plan: PLAN: We will try to get results of the labs done at [facility]. The patient was medically cleared. Continue on pain medication as well as her ophthalmic eyedrops. We will provide the patient with antacid. We will continue monitoring the patient closely Nutritional Asmnt/Malnutr-PDOC - Dietary Evaluation Malnutrition Findings (Please click <Entered> for more info): Nutritional Asmnt/Malnutrition Start: 05/08/19 10: 34 Text: Status: Complete Freq: Protocol: Document 05/08/19 10:34 MMULBALDOMERO (Rec: 05/08/19 10:50 MMULBALDOMERO CANDELARIA- FNS1) Nutritional Asmnt/Malnutrition Patient General Information Nutritional Screening Moderate Risk Diagnosis Psychosis Pertinent Medical Hx/Surgical Hx Schizophrenia, biploar, muscle weakness, dementia, glacoma, irritable bowel syndrome. Subjective Information Patient was admitted from SNF for being verbally aggressive, attempting to strike out, cursing at staff. Eating lunch at time of visit; tolerating well. Current Diet Order/ Nutrition Support Mechanical soft, 2gm Sodium Patient / S.O Not Indicated Pertinent Medications maalox, MOM, Theragran Pertinent Labs No labs available Nutritional Hx/Data Height 5 ft 3 in Height (Calculated Centimeters) 160.0 Current Weight (lbs) 129 lb Weight (Calculated Kilograms) 58.5 Weight (Calculated Grams) 32590.4 [place] Body Weight 115 % [place] Body Weight 112 Body Mass Index (BMI) 22.8 Recent Weight Change No Weight Status Approriate GI Symptoms GI Symptoms None Last BM 05/07 x 1 Difficult in: None Food Allergies No Cultural/Ethnic/Adventist Belief none indicated Usual diet at home unknown Skin Integrity/Comment: Lb 17, intact Current %PO Good (75-100%) Estimated Nutritional Goals BEE in Kcals: Using Current wt Calories/Kcals/Kg 58.6kg CBW 25-30kcal/kg Kcals Calculated ~2238-9485 kcal/day Protein: Using Current wt Protein g/k.8-1gm/kg Protein Calculated ~45-60 gm/day Fluid: ml ~0515-3011 ml/day (1 ml/kcal) Nutritional Problem No current Nutrition Prob Problem No nutrition diagnosis at this time Intervention/Recommendation Comments 1. Continue mechanical soft, 2gm Sodium diet as tolerated by patient. Expected Outcomes/Goals Expected Outcomes/Goals Oral intake >75% of meals, weight stable, labs WNL F/U LR 05/15
--- NOTE | 2019-05-09 23:08 | Progress Notes ---
DATE: 05/09/2019 SUBJECTIVE: Staff was spoken to. The patient is interviewed. Chart is reviewed. The patient continues to be dysphoric, isolative and withdrawn. The patient is pacing on the unit. The patient continues to have paranoid delusions, but denies any command hallucinations. Short and long-term memory are noted to be poor today. The patient's attention span is also noted to be very poor. No side effects to the medications are noted. ASSESSMENT: The patient is still psychotic. PLAN: To continue the patient with the supportive therapy, encouraged the patient to verbalize the concerns rather than to act out. JOB# [id number]
[2019-05-10] MEDS: Timolol 0.25% Ophth Soln 5 mL Bottle EACH EYE SCH ×2 (08:32→18:18)
[2019-05-10] MEDS: Multivitamin Tab PO SCH (08:32)
--- NOTE | 2019-05-10 12:46 | Internal Medicine Prog Note ---
Internal Medicine Subjective - Subjective Patient seen and examined:: with staff, chart reviewed Patient is:: awake, verbal, interactive Per staff patient has:: no adverse event, no episodes of fall, tolerating meds Internal Medicine Objective - Physical Exam Vitals and I&O: Vital Signs Temp 98.5 F 05/09/19 20:00 Pulse 79 05/09/19 20:00 Resp 18 05/09/19 20:00 BP 102/61 05/09/19 20:00 Pulse Ox 96 05/09/19 20:00 Intake & Output 05/09/19 05/10/19 05/10/19 18:59 06:59 18:59 Intake Total 120 240 Balance 120 240 Intake: Oral 120 240 Other: # Voids 4 3 # Bowel Movements 1 Stool Characteristics Soft Soft Soft Active Medications: Current Medications Acetaminophen (Tylenol) 650 mg PO Q4H PRN PRN Reason: Mild Pain or Fever >101 Stop: 07/05/19 12:25 Al Hydrox/Mg Hydrox/Simethicone (Maalox) 30 ml PO Q4HR PRN PRN Reason: GI DISTRESS Stop: 07/05/19 12:25 Divalproex Sodium (Depakote Sprinkle) 250 mg PO BID ZARA; Protocol Stop: 07/04/19 20:59 Last Admin: 05/10/19 08:31 Dose: 250 mg Dorzolamide HCl (Trusopt 2% Ophth Soln) 1 drop EACH EYE BID ZARA Stop: 07/05/19 08:59 Last Admin: 05/10/19 08:32 Dose: 1 drop Latanoprost (Xalatan 0.005% Ophth Soln) 1 drop EACH EYE HS ZARA Stop: 07/04/19 20:59 Last Admin: 05/09/19 20:37 Dose: 1 drop Lorazepam (Ativan) 0.5 mg PO Q4HR PRN; Protocol PRN Reason: Agitation Stop: 06/04/19 17:27 Last Admin: 05/10/19 10:51 Dose: 0.5 mg Magnesium Hydroxide (Milk Of Magnesia) 30 ml PO HS PRN PRN Reason: Constipation Stop: 07/05/19 12:25 Multivitamins/Vitamin C (Theragran) 1 tab PO DAILY ZARA Stop: 07/06/19 08:59 Last Admin: 05/10/19 08:32 Dose: 1 tab Olanzapine (Zyprexa) 5 mg PO HS ZARA; Protocol Stop: 07/04/19 20:59 Last Admin: 05/09/19 20:37 Dose: 5 mg Olanzapine (Zyprexa) 5 mg PO DAILY ZARA; Protocol Stop: 07/07/19 08:59 Timolol Maleate (Timoptic 0.25% Ophth Soln) 1 drop EACH EYE BID ZARA Stop: 07/05/19 08:59 Last Admin: 05/10/19 08:32 Dose: 1 drop Zolpidem Tartrate (Ambien) 5 mg PO HS PRN PRN Reason: Insomnia Stop: 07/04/19 17:27 Last Admin: 05/09/19 20:37 Dose: 5 mg General: demented HEENT: NC/AT, PERRLA, EOMI Neck: Supple Lungs: CTAB Cardiovascular: RRR, Normal S1, Normal S2, with murmur Abdomen: soft, non-tender, non-distended, positive bowel sound Extremities: excoriation Neurological: no change - Procedures Procedures: Procedures Procedure Code Date GROUP PSYCHOTHERAPY 87309 01/23/16 GROUP PSYCHOTHERAPY GZHZZZZ 01/23/16 GROUP PSYCHOTHERAPY 27868 12/28/15 GROUP PSYCHOTHERAPY GZHZZZZ 12/28/15 Internal Medicine Assmt/Plan - Assessment Assessment: ASSESSMENT AND PLAN: Irritable bowel syndrome, gastroesophageal reflux disease, dementia, glaucoma, and schizoaffective disorder. - Plan Plan: PLAN: We will try to get results of the labs done at [facility]. The patient was medically cleared. Continue on pain medication as well as her ophthalmic eyedrops. We will provide the patient with antacid. We will continue monitoring the patient closely. Nutritional Asmnt/Malnutr-PDOC - Dietary Evaluation Malnutrition Findings (Please click <Entered> for more info): Nutritional Asmnt/Malnutrition Start: 05/08/19 10: 34 Text: Status: Complete Freq: Protocol: Document 05/08/19 10:34 PRASANNA (Rec: 05/08/19 10:50 PRASANNA CANDELARIA- FNS1) Nutritional Asmnt/Malnutrition Patient General Information Nutritional Screening Moderate Risk Diagnosis Psychosis Pertinent Medical Hx/Surgical Hx Schizophrenia, biploar, muscle weakness, dementia, glacoma, irritable bowel syndrome. Subjective Information Patient was admitted from SNF for being verbally aggressive, attempting to strike out, cursing at staff. Eating lunch at time of visit; tolerating well. Current Diet Order/ Nutrition Support Mechanical soft, 2gm Sodium Patient / S.O Not Indicated Pertinent Medications maalox, MOM, Theragran Pertinent Labs No labs available Nutritional Hx/Data Height 1.6 m Height (Calculated Centimeters) 160.0 Current Weight (lbs) 58.513 kg Weight (Calculated Kilograms) 58.5 Weight (Calculated Grams) 59257.4 [place] Body Weight 115 % [place] Body Weight 112 Body Mass Index (BMI) 22.8 Recent Weight Change No Weight Status Approriate GI Symptoms GI Symptoms None Last BM 05/07 x 1 Difficult in: None Food Allergies No Cultural/Ethnic/Mormonism Belief none indicated Usual diet at home unknown Skin Integrity/Comment: Lb 17, intact Current %PO Good (75-100%) Estimated Nutritional Goals BEE in Kcals: Using Current wt Calories/Kcals/Kg 58.6kg CBW 25-30kcal/kg Kcals Calculated ~4894-7576 kcal/day Protein: Using Current wt Protein g/k.8-1gm/kg Protein Calculated ~45-60 gm/day Fluid: ml ~1149-6454 ml/day (1 ml/kcal) Nutritional Problem No current Nutrition Prob Problem No nutrition diagnosis at this time Intervention/Recommendation Comments 1. Continue mechanical soft, 2gm Sodium diet as tolerated by patient. Expected Outcomes/Goals Expected Outcomes/Goals Oral intake >75% of meals, weight stable, labs WNL F/U LR 05/15
--- NOTE | 2019-05-11 00:48 | Progress Notes ---
DATE: 05/10/2019 SUBJECTIVE: Staff was spoken to. The patient is interviewed. Mood is noted to be irritable. Affect is constricted. The patient continues to be very paranoid. The patient has been having difficult time to cope with the stress. No side effects to the medications are noted at this time. The patient is able to tolerate the medication of Zyprexa. No side effects. Staff are reporting that the patient has been complying with the ADLs. ASSESSMENT: The patient is still psychotic and impulsivity is a problem at this time. PLAN: To continue the patient with the current medications. I encouraged the patient to verbalize the concerns rather than to act out. JOB# [id number]
[2019-05-11] MEDS: Multivitamin Tab PO SCH (09:01)
[2019-05-11] MEDS: Timolol 0.25% Ophth Soln 5 mL Bottle EACH EYE SCH ×2 (09:02→17:49)
--- NOTE | 2019-05-11 12:50 | Internal Medicine Prog Note ---
Internal Medicine Subjective - Subjective Patient seen and examined:: with staff, chart reviewed Patient is:: awake, verbal, interactive Per staff patient has:: no adverse event, no episodes of fall, tolerating meds Internal Medicine Objective - Physical Exam Vitals and I&O: Vital Signs Temp 97.5 F 05/10/19 19:57 Pulse 78 05/10/19 19:57 Resp 19 05/10/19 19:57 BP 120/50 05/10/19 19:57 Pulse Ox 97 05/10/19 19:57 Intake & Output 05/10/19 05/11/19 05/11/19 18:59 06:59 18:59 Intake Total 900 120 Balance 900 120 Intake: Oral 900 120 Other: # Voids 4 1 # Bowel Movements 0 0 Stool Characteristics Soft Active Medications: Current Medications Acetaminophen (Tylenol) 650 mg PO Q4H PRN PRN Reason: Mild Pain or Fever >101 Stop: 07/05/19 12:25 Al Hydrox/Mg Hydrox/Simethicone (Maalox) 30 ml PO Q4HR PRN PRN Reason: GI DISTRESS Stop: 07/05/19 12:25 Divalproex Sodium (Depakote Sprinkle) 250 mg PO BID ZARA; Protocol Stop: 07/04/19 20:59 Last Admin: 05/11/19 09:01 Dose: 250 mg Dorzolamide HCl (Trusopt 2% Ophth Soln) 1 drop EACH EYE BID ZARA Stop: 07/05/19 08:59 Last Admin: 05/11/19 09:02 Dose: 1 drop Latanoprost (Xalatan 0.005% Ophth Soln) 1 drop EACH EYE HS ZARA Stop: 07/04/19 20:59 Last Admin: 05/10/19 20:30 Dose: 1 drop Lorazepam (Ativan) 0.5 mg PO Q4HR PRN; Protocol PRN Reason: Agitation Stop: 06/04/19 17:27 Last Admin: 05/10/19 10:51 Dose: 0.5 mg Magnesium Hydroxide (Milk Of Magnesia) 30 ml PO HS PRN PRN Reason: Constipation Stop: 07/05/19 12:25 Multivitamins/Vitamin C (Theragran) 1 tab PO DAILY ZARA Stop: 07/06/19 08:59 Last Admin: 05/11/19 09:01 Dose: 1 tab Olanzapine (Zyprexa) 5 mg PO HS ZARA; Protocol Stop: 07/04/19 20:59 Last Admin: 05/10/19 20:29 Dose: 5 mg Olanzapine (Zyprexa) 5 mg PO DAILY ZARA; Protocol Stop: 07/07/19 08:59 Last Admin: 05/11/19 09:02 Dose: 5 mg Timolol Maleate (Timoptic 0.25% Ophth Soln) 1 drop EACH EYE BID ZARA Stop: 07/05/19 08:59 Last Admin: 05/11/19 09:02 Dose: 1 drop Zolpidem Tartrate (Ambien) 5 mg PO HS PRN PRN Reason: Insomnia Stop: 07/04/19 17:27 Last Admin: 05/10/19 20:29 Dose: 5 mg General: demented HEENT: NC/AT, PERRLA, EOMI Neck: Supple Lungs: CTAB Cardiovascular: RRR, Normal S1, Normal S2, with murmur Abdomen: soft, non-tender, non-distended, positive bowel sound Extremities: excoriation Neurological: no change - Procedures Procedures: Procedures Procedure Code Date GROUP PSYCHOTHERAPY 03048 01/23/16 GROUP PSYCHOTHERAPY GZHZZZZ 01/23/16 GROUP PSYCHOTHERAPY 72099 12/28/15 GROUP PSYCHOTHERAPY GZHZZZZ 12/28/15 Internal Medicine Assmt/Plan - Assessment Assessment: ASSESSMENT AND PLAN: Irritable bowel syndrome, gastroesophageal reflux disease, dementia, glaucoma, and schizoaffective disorder. - Plan Plan: PLAN: We will try to get results of the labs done at [facility]. The patient was medically cleared. Continue on pain medication as well as her ophthalmic eyedrops. We will provide the patient with antacid. We will continue monitoring the patient closely. Nutritional Asmnt/Malnutr-PDOC - Dietary Evaluation Malnutrition Findings (Please click <Entered> for more info): Nutritional Asmnt/Malnutrition Start: 05/08/19 10: 34 Text: Status: Complete Freq: Protocol: Document 05/08/19 10:34 MMULBALDOMERO (Rec: 05/08/19 10:50 MMJUSTYNA CANDELARIA- FNS1) Nutritional Asmnt/Malnutrition Patient General Information Nutritional Screening Moderate Risk Diagnosis Psychosis Pertinent Medical Hx/Surgical Hx Schizophrenia, biploar, muscle weakness, dementia, glacoma, irritable bowel syndrome. Subjective Information Patient was admitted from SNF for being verbally aggressive, attempting to strike out, cursing at staff. Eating lunch at time of visit; tolerating well. Current Diet Order/ Nutrition Support Mechanical soft, 2gm Sodium Patient / S.O Not Indicated Pertinent Medications maalox, MOM, Theragran Pertinent Labs No labs available Nutritional Hx/Data Height 1.6 m Height (Calculated Centimeters) 160.0 Current Weight (lbs) 58.513 kg Weight (Calculated Kilograms) 58.5 Weight (Calculated Grams) 98514.4 [place] Body Weight 115 % [place] Body Weight 112 Body Mass Index (BMI) 22.8 Recent Weight Change No Weight Status Approriate GI Symptoms GI Symptoms None Last BM 05/07 x 1 Difficult in: None Food Allergies No Cultural/Ethnic/Confucianism Belief none indicated Usual diet at home unknown Skin Integrity/Comment: Lb 17, intact Current %PO Good (75-100%) Estimated Nutritional Goals BEE in Kcals: Using Current wt Calories/Kcals/Kg 58.6kg CBW 25-30kcal/kg Kcals Calculated ~9776-2568 kcal/day Protein: Using Current wt Protein g/k.8-1gm/kg Protein Calculated ~45-60 gm/day Fluid: ml ~0860-8524 ml/day (1 ml/kcal) Nutritional Problem No current Nutrition Prob Problem No nutrition diagnosis at this time Intervention/Recommendation Comments 1. Continue mechanical soft, 2gm Sodium diet as tolerated by patient. Expected Outcomes/Goals Expected Outcomes/Goals Oral intake >75% of meals, weight stable, labs WNL F/U LR 05/15
--- NOTE | 2019-05-12 00:14 | Progress Notes ---
DATE: 05/11/2019 SUBJECTIVE: Staff was spoken to. The patient is interviewed. Mood is noted to be irritable. Affect is constricted. The patient has been very reluctant to even to take a shower. The patient has been bargaining that she did have a cigarette first before she takes a shower. The patient has no insight into her illness. The patient is currently on Depakote and Zyprexa and has been able to tolerate the medications. The patient's sleep is noted to be fair. Appetite is fair. However, the patient continues to be irritable and angry. ASSESSMENT: The patient is still psychotic and impulsive. PLAN: To continue the patient with the supportive therapy and followup. [facility]# [id number]
[2019-05-12] MEDS: Timolol 0.25% Ophth Soln 5 mL Bottle EACH EYE SCH ×2 (09:18→16:33)
[2019-05-12] MEDS: Multivitamin Tab PO SCH (09:18)
--- NOTE | 2019-05-12 12:37 | Internal Medicine Prog Note ---
Internal Medicine Subjective - Subjective Patient seen and examined:: with staff, chart reviewed Patient is:: awake, verbal, interactive Per staff patient has:: no adverse event, no episodes of fall, tolerating meds Internal Medicine Objective - Physical Exam Vitals and I&O: Vital Signs Temp 98.5 F 05/12/19 06:26 Pulse 73 05/12/19 06:26 Resp 18 05/12/19 06:26 BP 114/50 05/12/19 06:26 Pulse Ox 97 05/12/19 06:26 Intake & Output 05/11/19 05/12/19 05/12/19 18:59 06:59 18:59 Intake Total 900 120 Balance 900 120 Intake: Oral 900 120 Other: # Voids 3 3 # Bowel Movements 1 0 Active Medications: Current Medications Acetaminophen (Tylenol) 650 mg PO Q4H PRN PRN Reason: Mild Pain or Fever >101 Stop: 07/05/19 12:25 Al Hydrox/Mg Hydrox/Simethicone (Maalox) 30 ml PO Q4HR PRN PRN Reason: GI DISTRESS Stop: 07/05/19 12:25 Divalproex Sodium (Depakote Sprinkle) 250 mg PO BID ZARA; Protocol Stop: 07/04/19 20:59 Last Admin: 05/12/19 09:18 Dose: 250 mg Dorzolamide HCl (Trusopt 2% Ophth Soln) 1 drop EACH EYE BID ZARA Stop: 07/05/19 08:59 Last Admin: 05/12/19 09:18 Dose: 1 drop Latanoprost (Xalatan 0.005% Ophth Soln) 1 drop EACH EYE HS ZARA Stop: 07/04/19 20:59 Last Admin: 05/11/19 20:28 Dose: 1 drop Lorazepam (Ativan) 0.5 mg PO Q4HR PRN; Protocol PRN Reason: Agitation Stop: 06/04/19 17:27 Last Admin: 05/10/19 10:51 Dose: 0.5 mg Magnesium Hydroxide (Milk Of Magnesia) 30 ml PO HS PRN PRN Reason: Constipation Stop: 07/05/19 12:25 Multivitamins/Vitamin C (Theragran) 1 tab PO DAILY ZARA Stop: 07/06/19 08:59 Last Admin: 05/12/19 09:18 Dose: 1 tab Olanzapine (Zyprexa) 5 mg PO HS ZARA; Protocol Stop: 07/04/19 20:59 Last Admin: 05/11/19 20:28 Dose: 5 mg Olanzapine (Zyprexa) 5 mg PO DAILY ZARA; Protocol Stop: 07/07/19 08:59 Last Admin: 05/12/19 09:18 Dose: 5 mg Timolol Maleate (Timoptic 0.25% Ophth Soln) 1 drop EACH EYE BID ZARA Stop: 07/05/19 08:59 Last Admin: 05/12/19 09:18 Dose: 1 drop Zolpidem Tartrate (Ambien) 5 mg PO HS PRN PRN Reason: Insomnia Stop: 07/04/19 17:27 Last Admin: 05/11/19 20:28 Dose: 5 mg General: demented HEENT: NC/AT, PERRLA, EOMI Neck: Supple Lungs: CTAB Cardiovascular: RRR, Normal S1, Normal S2, with murmur Abdomen: soft, non-tender, non-distended, positive bowel sound Extremities: excoriation Neurological: no change - Procedures Procedures: Procedures Procedure Code Date GROUP PSYCHOTHERAPY 51688 01/23/16 GROUP PSYCHOTHERAPY GZHZZZZ 01/23/16 GROUP PSYCHOTHERAPY 17282 12/28/15 GROUP PSYCHOTHERAPY GZHZZZZ 12/28/15 Internal Medicine Assmt/Plan - Assessment Assessment: ASSESSMENT AND PLAN: Irritable bowel syndrome, gastroesophageal reflux disease, dementia, glaucoma, and schizoaffective disorder. - Plan Plan: PLAN: We will try to get results of the labs done at [facility]. The patient was medically cleared. Continue on pain medication as well as her ophthalmic eyedrops. We will provide the patient with antacid. We will continue monitoring the patient closely. Nutritional Asmnt/Malnutr-PDOC - Dietary Evaluation Malnutrition Findings (Please click <Entered> for more info): Nutritional Asmnt/Malnutrition Start: 05/08/19 10: 34 Text: Status: Complete Freq: Protocol: Document 05/08/19 10:34 MMULBALDOMERO (Rec: 05/08/19 10:50 MMULBALDOMERO CANDELARIA- FNS1) Nutritional Asmnt/Malnutrition Patient General Information Nutritional Screening Moderate Risk Diagnosis Psychosis Pertinent Medical Hx/Surgical Hx Schizophrenia, biploar, muscle weakness, dementia, glacoma, irritable bowel syndrome. Subjective Information Patient was admitted from SNF for being verbally aggressive, attempting to strike out, cursing at staff. Eating lunch at time of visit; tolerating well. Current Diet Order/ Nutrition Support Mechanical soft, 2gm Sodium Patient / S.O Not Indicated Pertinent Medications maalox, MOM, Theragran Pertinent Labs No labs available Nutritional Hx/Data Height 1.6 m Height (Calculated Centimeters) 160.0 Current Weight (lbs) 58.513 kg Weight (Calculated Kilograms) 58.5 Weight (Calculated Grams) 22787.4 [place] Body Weight 115 % [place] Body Weight 112 Body Mass Index (BMI) 22.8 Recent Weight Change No Weight Status Approriate GI Symptoms GI Symptoms None Last BM 05/07 x 1 Difficult in: None Food Allergies No Cultural/Ethnic/Zoroastrian Belief none indicated Usual diet at home unknown Skin Integrity/Comment: Lb 17, intact Current %PO Good (75-100%) Estimated Nutritional Goals BEE in Kcals: Using Current wt Calories/Kcals/Kg 58.6kg CBW 25-30kcal/kg Kcals Calculated ~9614-6482 kcal/day Protein: Using Current wt Protein g/k.8-1gm/kg Protein Calculated ~45-60 gm/day Fluid: ml ~2152-0270 ml/day (1 ml/kcal) Nutritional Problem No current Nutrition Prob Problem No nutrition diagnosis at this time Intervention/Recommendation Comments 1. Continue mechanical soft, 2gm Sodium diet as tolerated by patient. Expected Outcomes/Goals Expected Outcomes/Goals Oral intake >75% of meals, weight stable, labs WNL F/U LR 05/15
--- NOTE | 2019-05-13 00:16 | Progress Notes ---
DATE: 05/12/2019 SUBJECTIVE: Staff was spoken to. The patient is interviewed. Mood is noted to be less irritable. The patient is stating that she needed a cigarette to calm her down. The patient's insight and judgment are noted to be still impaired. Impulse control seems to be improving. The patient has paranoia, but denies any command hallucinations. No side effects to the medications are noted at this time. The patient has been stating that she has been able to sleep a little bit. Her appetite is also improving. ASSESSMENT: The patient's psychosis is resolving. PLAN: To continue the patient with the supportive therapy, encouraged the patient to verbalize the concerns rather than to act out. [facility]# [id number]
[2019-05-13] MEDS: Multivitamin Tab PO SCH (08:27)
[2019-05-13] MEDS: Timolol 0.25% Ophth Soln 5 mL Bottle EACH EYE SCH ×2 (08:28→17:32)
--- NOTE | 2019-05-13 13:09 | Internal Medicine Prog Note ---
Internal Medicine Subjective - Subjective Patient seen and examined:: with staff, chart reviewed Patient is:: awake, verbal, interactive Per staff patient has:: no adverse event, no episodes of fall, tolerating meds Internal Medicine Objective - Physical Exam Vitals and I&O: Vital Signs Temp 97.1 F 05/12/19 20:00 Pulse 77 05/12/19 20:00 Resp 19 05/12/19 20:00 BP 134/81 05/12/19 20:00 Pulse Ox 98 05/12/19 20:00 Intake & Output 05/12/19 05/13/19 05/13/19 18:59 06:59 18:59 Intake Total 800 220 Balance 800 220 Intake: Oral 800 220 Other: # Voids 3 1 # Bowel Movements 1 Active Medications: Current Medications Acetaminophen (Tylenol) 650 mg PO Q4H PRN PRN Reason: Mild Pain or Fever >101 Stop: 07/05/19 12:25 Al Hydrox/Mg Hydrox/Simethicone (Maalox) 30 ml PO Q4HR PRN PRN Reason: GI DISTRESS Stop: 07/05/19 12:25 Divalproex Sodium (Depakote Sprinkle) 250 mg PO BID ZARA; Protocol Stop: 07/04/19 20:59 Last Admin: 05/13/19 08:25 Dose: 250 mg Dorzolamide HCl (Trusopt 2% Ophth Soln) 1 drop EACH EYE BID ZARA Stop: 07/05/19 08:59 Last Admin: 05/13/19 08:27 Dose: Not Given Latanoprost (Xalatan 0.005% Ophth Soln) 1 drop EACH EYE HS ZARA Stop: 07/04/19 20:59 Last Admin: 05/12/19 20:12 Dose: 1 drop Lorazepam (Ativan) 0.5 mg PO Q4HR PRN; Protocol PRN Reason: Agitation Stop: 06/04/19 17:27 Last Admin: 05/10/19 10:51 Dose: 0.5 mg Magnesium Hydroxide (Milk Of Magnesia) 30 ml PO HS PRN PRN Reason: Constipation Stop: 07/05/19 12:25 Multivitamins/Vitamin C (Theragran) 1 tab PO DAILY ZARA Stop: 07/06/19 08:59 Last Admin: 05/13/19 08:27 Dose: 1 tab Olanzapine (Zyprexa) 5 mg PO HS ZARA; Protocol Stop: 07/04/19 20:59 Last Admin: 05/12/19 20:11 Dose: 5 mg Olanzapine (Zyprexa) 5 mg PO DAILY ZARA; Protocol Stop: 07/07/19 08:59 Last Admin: 05/13/19 08:27 Dose: 5 mg Timolol Maleate (Timoptic 0.25% Ophth Soln) 1 drop EACH EYE BID ZARA Stop: 07/05/19 08:59 Last Admin: 05/13/19 08:28 Dose: Not Given Zolpidem Tartrate (Ambien) 5 mg PO HS PRN PRN Reason: Insomnia Stop: 07/04/19 17:27 Last Admin: 05/12/19 21:03 Dose: 5 mg General: demented HEENT: NC/AT, PERRLA, EOMI Neck: Supple Lungs: CTAB Cardiovascular: RRR, Normal S1, Normal S2, with murmur Abdomen: soft, non-tender, non-distended, positive bowel sound Extremities: excoriation Neurological: no change - Procedures Procedures: Procedures Procedure Code Date GROUP PSYCHOTHERAPY 77143 01/23/16 GROUP PSYCHOTHERAPY GZHZZZZ 01/23/16 GROUP PSYCHOTHERAPY 68090 12/28/15 GROUP PSYCHOTHERAPY GZHZZZZ 12/28/15 Internal Medicine Assmt/Plan - Assessment Assessment: ASSESSMENT AND PLAN: Irritable bowel syndrome, gastroesophageal reflux disease, dementia, glaucoma, and schizoaffective disorder. - Plan Plan: PLAN: We will try to get results of the labs done at [facility]. The patient was medically cleared. Continue on pain medication as well as her ophthalmic eyedrops. We will provide the patient with antacid. We will continue monitoring the patient closely. Nutritional Asmnt/Malnutr-PDOC - Dietary Evaluation Malnutrition Findings (Please click <Entered> for more info): Nutritional Asmnt/Malnutrition Start: 05/08/19 10: 34 Text: Status: Complete Freq: Protocol: Document 05/08/19 10:34 MMJUSTYNA (Rec: 05/08/19 10:50 MMJUSTYNA CANDELARIA- FNS1) Nutritional Asmnt/Malnutrition Patient General Information Nutritional Screening Moderate Risk Diagnosis Psychosis Pertinent Medical Hx/Surgical Hx Schizophrenia, biploar, muscle weakness, dementia, glacoma, irritable bowel syndrome. Subjective Information Patient was admitted from SNF for being verbally aggressive, attempting to strike out, cursing at staff. Eating lunch at time of visit; tolerating well. Current Diet Order/ Nutrition Support Mechanical soft, 2gm Sodium Patient / S.O Not Indicated Pertinent Medications maalox, MOM, Theragran Pertinent Labs No labs available Nutritional Hx/Data Height 1.6 m Height (Calculated Centimeters) 160.0 Current Weight (lbs) 58.513 kg Weight (Calculated Kilograms) 58.5 Weight (Calculated Grams) 42299.4 [place] Body Weight 115 % [place] Body Weight 112 Body Mass Index (BMI) 22.8 Recent Weight Change No Weight Status Approriate GI Symptoms GI Symptoms None Last BM 05/07 x 1 Difficult in: None Food Allergies No Cultural/Ethnic/Mosque Belief none indicated Usual diet at home unknown Skin Integrity/Comment: Lb 17, intact Current %PO Good (75-100%) Estimated Nutritional Goals BEE in Kcals: Using Current wt Calories/Kcals/Kg 58.6kg CBW 25-30kcal/kg Kcals Calculated ~4540-9443 kcal/day Protein: Using Current wt Protein g/k.8-1gm/kg Protein Calculated ~45-60 gm/day Fluid: ml ~8428-6602 ml/day (1 ml/kcal) Nutritional Problem No current Nutrition Prob Problem No nutrition diagnosis at this time Intervention/Recommendation Comments 1. Continue mechanical soft, 2gm Sodium diet as tolerated by patient. Expected Outcomes/Goals Expected Outcomes/Goals Oral intake >75% of meals, weight stable, labs WNL F/U LR 05/15
[2019-05-14] MEDS: Multivitamin Tab PO SCH (08:28)
[2019-05-14] MEDS: Timolol 0.25% Ophth Soln 5 mL Bottle EACH EYE SCH (08:29)
--- NOTE | 2019-05-14 12:43 | Internal Medicine Prog Note ---
Internal Medicine Subjective - Subjective Patient seen and examined:: with staff, chart reviewed Patient is:: awake, verbal, interactive Per staff patient has:: no adverse event, no episodes of fall, tolerating meds Internal Medicine Objective - Physical Exam Vitals and I&O: Vital Signs Temp 97.2 F 05/14/19 12:02 Pulse 72 05/14/19 12:02 Resp 16 05/14/19 12:02 BP 123/73 05/14/19 12:02 Pulse Ox 98 05/14/19 12:02 Intake & Output 05/13/19 05/14/19 05/14/19 18:59 06:59 18:59 Intake Total 120 Balance 120 Intake: Oral 120 Other: # Voids 3 3 # Bowel Movements 1 Active Medications: Current Medications Acetaminophen (Tylenol) 650 mg PO Q4H PRN PRN Reason: Mild Pain or Fever >101 Stop: 07/05/19 12:25 Al Hydrox/Mg Hydrox/Simethicone (Maalox) 30 ml PO Q4HR PRN PRN Reason: GI DISTRESS Stop: 07/05/19 12:25 Divalproex Sodium (Depakote Sprinkle) 250 mg PO BID ZARA; Protocol Stop: 07/04/19 20:59 Last Admin: 05/14/19 08:28 Dose: 250 mg Dorzolamide HCl (Trusopt 2% Ophth Soln) 1 drop EACH EYE BID ZARA Stop: 07/05/19 08:59 Last Admin: 05/14/19 08:29 Dose: 1 drop Latanoprost (Xalatan 0.005% Ophth Soln) 1 drop EACH EYE HS ZARA Stop: 07/04/19 20:59 Last Admin: 05/13/19 20:48 Dose: Not Given Lorazepam (Ativan) 0.5 mg PO Q4HR PRN; Protocol PRN Reason: Agitation Stop: 06/04/19 17:27 Last Admin: 05/14/19 01:49 Dose: 0.5 mg Magnesium Hydroxide (Milk Of Magnesia) 30 ml PO HS PRN PRN Reason: Constipation Stop: 07/05/19 12:25 Multivitamins/Vitamin C (Theragran) 1 tab PO DAILY ZARA Stop: 07/06/19 08:59 Last Admin: 05/14/19 08:28 Dose: 1 tab Olanzapine (Zyprexa) 5 mg PO HS ZARA; Protocol Stop: 07/04/19 20:59 Last Admin: 05/13/19 20:35 Dose: 5 mg Olanzapine (Zyprexa) 5 mg PO DAILY ZARA; Protocol Stop: 07/07/19 08:59 Last Admin: 05/14/19 08:29 Dose: 5 mg Timolol Maleate (Timoptic 0.25% Ophth Soln) 1 drop EACH EYE BID ZARA Stop: 07/05/19 08:59 Last Admin: 05/14/19 08:29 Dose: 1 drop Zolpidem Tartrate (Ambien) 5 mg PO HS PRN PRN Reason: Insomnia Stop: 07/04/19 17:27 Last Admin: 05/13/19 20:35 Dose: 5 mg General: demented HEENT: NC/AT, PERRLA, EOMI Neck: Supple Lungs: CTAB Cardiovascular: RRR, Normal S1, Normal S2, with murmur Abdomen: soft, non-tender, non-distended, positive bowel sound Extremities: excoriation Neurological: no change - Procedures Procedures: Procedures Procedure Code Date GROUP PSYCHOTHERAPY 77907 01/23/16 GROUP PSYCHOTHERAPY GZHZZZZ 01/23/16 GROUP PSYCHOTHERAPY 50383 12/28/15 GROUP PSYCHOTHERAPY GZHZZZZ 12/28/15 Internal Medicine Assmt/Plan - Assessment Assessment: ASSESSMENT AND PLAN: Irritable bowel syndrome, gastroesophageal reflux disease, dementia, glaucoma, and schizoaffective disorder. - Plan Plan: PLAN: We will try to get results of the labs done at [facility]. The patient was medically cleared. Continue on pain medication as well as her ophthalmic eyedrops. We will provide the patient with antacid. We will continue monitoring the patient closely. Nutritional Asmnt/Malnutr-PDOC - Dietary Evaluation Malnutrition Findings (Please click <Entered> for more info): Nutritional Asmnt/Malnutrition Start: 05/08/19 10: 34 Text: Status: Complete Freq: Protocol: Document 05/08/19 10:34 PRASANNA (Rec: 05/08/19 10:50 MMJUSTYNA CANDELARIA- FNS1) Nutritional Asmnt/Malnutrition Patient General Information Nutritional Screening Moderate Risk Diagnosis Psychosis Pertinent Medical Hx/Surgical Hx Schizophrenia, biploar, muscle weakness, dementia, glacoma, irritable bowel syndrome. Subjective Information Patient was admitted from SNF for being verbally aggressive, attempting to strike out, cursing at staff. Eating lunch at time of visit; tolerating well. Current Diet Order/ Nutrition Support Mechanical soft, 2gm Sodium Patient / S.O Not Indicated Pertinent Medications maalox, MOM, Theragran Pertinent Labs No labs available Nutritional Hx/Data Height 1.6 m Height (Calculated Centimeters) 160.0 Current Weight (lbs) 58.513 kg Weight (Calculated Kilograms) 58.5 Weight (Calculated Grams) 52660.4 [place] Body Weight 115 % [place] Body Weight 112 Body Mass Index (BMI) 22.8 Recent Weight Change No Weight Status Approriate GI Symptoms GI Symptoms None Last BM 05/07 x 1 Difficult in: None Food Allergies No Cultural/Ethnic/Taoism Belief none indicated Usual diet at home unknown Skin Integrity/Comment: Lb 17, intact Current %PO Good (75-100%) Estimated Nutritional Goals BEE in Kcals: Using Current wt Calories/Kcals/Kg 58.6kg CBW 25-30kcal/kg Kcals Calculated ~5338-0196 kcal/day Protein: Using Current wt Protein g/k.8-1gm/kg Protein Calculated ~45-60 gm/day Fluid: ml ~0532-8893 ml/day (1 ml/kcal) Nutritional Problem No current Nutrition Prob Problem No nutrition diagnosis at this time Intervention/Recommendation Comments 1. Continue mechanical soft, 2gm Sodium diet as tolerated by patient. Expected Outcomes/Goals Expected Outcomes/Goals Oral intake >75% of meals, weight stable, labs WNL F/U LR 05/15
--- NOTE | 2019-05-14 22:17 | Discharge Summary ---
DATE OF DISCHARGE: 05/14/2019 PSYCHIATRIC DISCHARGE SUMMARY IDENTIFYING DATA: The patient is a 69-year-old woman, resident of [facility]. Information obtained by directly interviewing the patient as well as reviewing the admission papers. JUSTIFICATION OF HOSPITALIZATION: The patient is admitted on a voluntary basis in view of her acute agitation and aggressive behavior. CHIEF COMPLAINT: "I don't care, they did not give me my medications, right away." DIAGNOSES: At the time of admission: AXIS I: Schizoaffective disorder. AXIS IB: Dementia and behavioral change, secondary trait. AXIS II: None. AXIS III: As per Dr. Stanton. HISTORY OF PRESENT ILLNESS: Please refer to the 05/06/2019 dictation done by me. Physical examination done by Dr. Stanton. HOSPITAL COURSE AND RESPONSE TO TREATMENT: The patient has been observed on the inpatient unit, provided with supportive psychotherapy. The patient has been closely monitored. The blood work done at the time of the hospitalization has been reviewed and the patient has been closely monitored on the unit and the patient has been treated for her aggressive behavior with Depakote and Zyprexa. Zyprexa has been increased to 5 mg twice a day, Depakote was given 250 mg twice a day. With these medications, the patient has been observed and was noted to be doing fairly well and hence the patient was discharged on 05/14/2019 with recommendation that she is going to be seeking treatment on an outpatient basis. MENTAL STATUS EXAMINATION: At the time of discharge, the patient noted to be anxious. Affect is appropriate. Not suicidal or homicidal. Insight and judgment are noted to be improving. Impulse control seems to be fair. Coping skills are noted to be fair. The patient has been able to verbalize the concerns rather than to act out at the time of discharge. CONDITION: At the time of discharge noted to be stable. DIAGNOSES AT THE TIME OF DISCHARGE: AXIS I: Schizoaffective disorder. AXIS IB: Dementia and behavioral change, secondary trait. AXIS II: None. AXIS III: As per Dr. Stanton. AFTERCARE PLAN: The patient is discharged back to the [facility] for further followup. PROGNOSIS: At the time of discharge noted to be fair with the treatment. JOB# [id number]
== END 2019-05-14 14:10 | DRG 885 ==
LOC: GERO 17:15
DX: F25.9 Schizoaffective disorder, unspecified (principal); F03.91 Unspecified dementia, unspecified severity, with behavioral disturbance; K58.9 Irritable bowel syndrome, unspecified; K21.9 Gastro-esophageal reflux disease without esophagitis; H40.9 Unspecified glaucoma
CPT/HCPCS: 83036-90; G0410; J7051